=== PATIENT | male | born 1960 ===

== ENCOUNTER 2023-08-05 23:04 | Inpatient (IN) | payer OTHER, MEDICARE, SELFPAY ==
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
[2023-08-06 00:31] LABS: Glucose, Whole Blood 105 mg/dL (60-115)
[2023-08-06 03:08] VITALS: BP 104/65; PULSE 69; RESP 18; TEMP 36.7; O2SAT 95
[2023-08-06 03:37] VITALS: BMI 24.9
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
[2023-08-06] MEDS: hydrOXYzine HCL 25 MG TABLET PO (05:23)
[2023-08-06] MEDS: Nicotine Polacrilex 2 MG GUM BUCCAL ×2 (05:50→12:25)
[2023-08-06 08:10] VITALS: BP 115/74; PULSE 64; RESP 18; TEMP 36; O2SAT 98
[2023-08-06 09:23] LABS: Alanine Aminotransferase 24 U/L (0-40); Albumin Level 4.1 g/dL (3.5-5.0); Alkaline Phosphatase 97 U/L (39-117); Anion Gap 8 (12-20); Aspartate Amino Transferase 45 U/L (5-37); Bilirubin Total 0.5 mg/dL (0.0-1.0); Blood Urea Nitrogen 20 mg/dL (9-16); Calcium 9.3 mg/dL (8.4-10.2); Carbon Dioxide 29 mmol/L (22-29); Chloride 107 mmol/L (96-108); Cholesterol 113 mg/dL (<200); Creatinine Clr Calc Pharmacy 110.9; Estimated Glomerular Filt Rate > 60; Glucose Fasting 102 mg/dL (60-99); HDL Cholesterol 47 mg/dL (>40); LDL Cholesterol Calculated 60 mg/dL (<100); Potassium 4.3 mmol/L (3.3-5.1); Sodium 140 mmol/L (135-145); Total Protein 6.6 g/dL (6.5-8.0); Triglycerides 33 mg/dL (<150)
[2023-08-06] MEDS: Rivaroxaban 20 MG TABLET PO (14:34)
[2023-08-06] MEDS: levETIRAcetam 500 MG TABLET 2500 MG PO (14:34)
[2023-08-06 14:39] LABS: Neut%MD 64.4 %; Neutrophils Absolute Auto 5.1 x10*3/uL (2.0-8.3)
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
[2023-08-06 17:05] VITALS: BP 118/63; PULSE 68; RESP 16; TEMP 36.1; O2SAT 97
[2023-08-06] MEDS: Acetaminophen 325 MG TABLET 650 MG PO (18:58)
[2023-08-06] MEDS: Lacosamide 100 MG TABLET 200 MG PO (21:01)
[2023-08-06] MEDS: Docusate Sodium 100 MG CAPSULE PO (21:01)
[2023-08-06] MEDS: cloZAPine 25 MG TABLET 50 MG PO (21:01)
[2023-08-07] MEDS: Levothyroxine Sodium 112 MCG, Levothyroxine Sodium 25 MCG 137 MCG PO (06:05)
[2023-08-07 08:46] VITALS: BP 122/76; PULSE 83; RESP 16; TEMP 36.3; O2SAT 99
[2023-08-07] MEDS: Lacosamide 100 MG TABLET 200 MG PO ×2 (09:21→21:15)
[2023-08-07] MEDS: cloZAPine 100 MG TABLET 200 MG PO (09:21)
[2023-08-07] MEDS: levETIRAcetam 500 MG TABLET 2500 MG PO ×2 (09:21→21:16)
[2023-08-07] MEDS: metFORMIN HCl ER 500 MG TAB.ER.24H PO (09:21)
[2023-08-07] MEDS: Docusate Sodium 100 MG CAPSULE PO ×2 (09:21→21:16)
[2023-08-07] MEDS: Atorvastatin Calcium 10 MG TABLET PO (09:21)
[2023-08-07] MEDS: Metoprolol Succinate ER 100 MG TAB.ER.24H PO (09:22)
[2023-08-07] MEDS: Finasteride 5 MG TABLET PO (09:22)
--- NOTE | 2023-08-07 10:43 | P.PNPSI_ITS ---
Subjective Subjective Date of Service: 08/07/23 Reason For Visit: Schizoaffective disorder,bipolar type Interim History: 63 yo male, history of alcohol use disorder, anxiety, atrial flutter, chronic osteomyelitis, HTN, schizoaffective disorder, seizure disorder. Pt has been visible in milieu. He is mildly irritable upon approach; he reports he will compky with treatmetn; he is somewhat dismissive of care. slow to respond and may be thought blocking; denies voices denies VH. denies SI ro HI. Medication Compliance: Yes Side effects from medications: No Attending Groups: No Review of Systems Acute medical concerns: No Medical Review of Systems: unchanged Review of Systems Review of Systems Yes all other systems are reviewed and are negative Mental Status Exam Mental Status Exam Patient Appearance: Fatigued and Appropriate Patient Orientation: Person, Place, Time and Situation Level of Consciousness: Alert Patient Behavior: Cooperative, Fatigued and Good Eye Contact Mood Description: Sad Affect Description: Flat Patient Cognition Impaired: No Ability to Follow Directions: Good Speech Pattern: Clear, Appropriate, Spontaneous Speech and Soft-Spoken Memory Description: Episodic Impaired Thought Process: Distracted Thought Content: positive for Poverty of Content and positive for Evasive Judgement: Poor Diagnostics Vital Signs (24Hr): Vital Signs - 24 hr 08/06/23 17:05 Temperature 97.0 F Pulse Rate 68 Respiratory Rate 16 Blood Pressure 118/63 Pulse Oximetry 97 Oxygen Delivery Method Room Air BMI result Body Mass Index 24.9 Labs 08/06/23 08:19 Labs: Laboratory Results - last 48 hr 08/06/23 08/06/23 08/06/23 00:25 08:19 14:35 Absolute Neuts (auto) 5.1 Sodium 140 Potassium 4.3 Chloride 107 Carbon Dioxide 29 Anion Gap 8 L BUN 20 H Creatinine 0.78 Estim Creat Clear Calc 110.9 Estimated GFR > 60 POC Glucose 105 Fasting Glucose 102 H Calcium 9.3 Total Bilirubin 0.5 AST 45 H ALT 24 Alkaline Phosphatase 97 Total Protein 6.6 Albumin 4.1 Triglycerides 33 Cholesterol 113 LDL Cholesterol, Calc 60 HDL Cholesterol 47 Medications Medications Current Medications Acetaminophen (Acetaminophen 325 Mg Tablet) 650 mg PO Q6H PRN PRN Reason: Headache/Pain Mild Scale (1-3) Last Admin: 08/06/23 18:58 Dose: 650 mg Al Hydroxide/Mg Hydroxide (Magnesium Hydrox/Alum Hydrox 30 Ml Oral.Susp) 30 ml PO Q6H PRN PRN Reason: Heartburn/Nausea Atorvastatin Calcium (Atorvastatin Calcium 10 Mg Tablet) 10 mg PO DAILY [facility] Last Admin: 08/07/23 09:21 Dose: 10 mg Benztropine Mesylate (Benztropine Mesylate 0.5 Mg Tablet) 0.5 mg PO BID PRN PRN Reason: Extrapyramidal Effects Clozapine (Clozapine 25 Mg Tablet) 50 mg PO BEDTIME [facility] Last Admin: 08/06/23 21:01 Dose: 50 mg Clozapine (Clozapine 100 Mg Tablet) 200 mg PO DAILY [facility] Last Admin: 08/07/23 09:21 Dose: 200 mg Docusate Sodium (Docusate Sodium 100 Mg Capsule) 100 mg PO BID [facility] Last Admin: 08/07/23 09:21 Dose: 100 mg Finasteride (Finasteride 5 Mg Tablet) 5 mg PO DAILY [facility] Last Admin: 08/07/23 09:22 Dose: 5 mg Hydroxyzine HCl (Hydroxyzine Hcl 25 Mg Tablet) 25 mg PO Q6H PRN PRN Reason: Anxiety Last Admin: 08/06/23 05:23 Dose: 25 mg Lacosamide (Lacosamide 100 Mg Tablet) 200 mg PO BID [facility] Last Admin: 08/07/23 09:21 Dose: 200 mg Levetiracetam (Levetiracetam 500 Mg Tablet) 2,500 mg PO BID [facility] Last Admin: 08/07/23 09:21 Dose: 2,500 mg Levothyroxine Sodium 112 mcg/ (Levothyroxine Sodium 25 mcg) 137 mcg PO DAILY@0600 [facility] Last Admin: 08/07/23 06:05 Dose: 137 mcg Loratadine (Loratadine 10 Mg Tablet) 10 mg PO DAILY [facility] Last Admin: 08/07/23 09:22 Dose: Not Given Magnesium Hydroxide (Milk Of Magnesia 30 Ml Oral.Susp) 30 ml PO DAILY PRN PRN Reason: Constipation Metformin HCl (Metformin Hcl Er 500 Mg Tab.Er.24h) 500 mg PO DAILY [facility] Last Admin: 08/07/23 09:21 Dose: 500 mg Metoprolol Succinate (Metoprolol Succinate Er 100 Mg Tab.Er.24h) 100 mg PO DAILY [facility]; Protocol Last Admin: 08/07/23 09:22 Dose: 100 mg Nicotine Polacrilex (Nicotine Polacrilex 2 Mg Gum) 2 mg BUCCAL Q2H PRN PRN Reason: Nicotine Cravings Last Admin: 08/06/23 12:25 Dose: 2 mg Nicotine Polacrilex (Nicotine Polacrilex 2 Mg Gum) 2 mg BUCCAL Q2H PRN PRN Reason: Nicotine Cravings Non-Formulary Medication (Alfuzosin) 10 mg PO DAILY [facility] Rivaroxaban (Rivaroxaban 20 Mg Tablet) 20 mg PO 1500 [facility] Last Admin: 08/06/23 14:34 Dose: 20 mg Trazodone HCl (Trazodone Hcl 50 Mg Tablet) 50 mg PO BEDTIME MRX1 PRN PRN Reason: Insomnia Allergies Allergies Allergy/AdvReac Type Severity Reaction Status Date / Time house dust Allergy Unknown Unknown Verified 08/06/23 17:24 mold Allergy Unknown Unknown Verified 08/06/23 17:24 Assessment & Plan Assessment & Plan (1) Schizoaffective disorder: Status: Acute Code(s): F25.9 - Schizoaffective disorder, unspecified Plan 63 yo male, hx of schizoaffective disorder, s/p community restraint for SI. Plan: Re-establish regime Monitor for breakthrough sx Collateral contact- was contacted, she was working and will talk with us more on Wednesday. She has the number to reach pt. Thyroid panel-pt unsure if he wants levothyroxine Establish alliance, observe 08/07/23 continue tx plan Patient educated on: diagnosis, medication risk/benefits, therapeutic strategies and medical condition Informed Consent: further education needed Reason for continued inpatient stay Substantial Risk for: harm to self, inability to function and rapid decompensation Time Spent With Patient Time: Total time managing care of this patient today ____ minutes.
[2023-08-07] MEDS: Nicotine Polacrilex 2 MG GUM BUCCAL ×3 (14:42→19:16)
[2023-08-07] MEDS: Rivaroxaban 20 MG TABLET PO (14:42)
[2023-08-07] MEDS: hydrOXYzine HCL 25 MG TABLET PO (15:41)
[2023-08-07 18:45] VITALS: BP 113/66; PULSE 71; RESP 16; TEMP 36.6; O2SAT 100
[2023-08-07] MEDS: Acetaminophen 325 MG TABLET 650 MG PO (19:17)
[2023-08-07 20:29] LABS: Glucose, Whole Blood 85 mg/dL (60-115)
[2023-08-07] MEDS: cloZAPine 25 MG TABLET 50 MG PO (21:16)
[2023-08-08] MEDS: Nicotine Polacrilex 2 MG GUM BUCCAL ×4 (01:50→22:06)
[2023-08-08] MEDS: Levothyroxine Sodium 112 MCG, Levothyroxine Sodium 25 MCG 137 MCG PO (05:58)
[2023-08-08 08:35] VITALS: BP 125/76; PULSE 67; RESP 16; TEMP 36.4; O2SAT 100
[2023-08-08 09:09] LABS: Glucose, Whole Blood 82 mg/dL (60-115)
[2023-08-08] MEDS: Atorvastatin Calcium 10 MG TABLET PO (10:32)
[2023-08-08] MEDS: Benztropine Mesylate 0.5 MG TABLET PO (10:32)
[2023-08-08] MEDS: Lacosamide 100 MG TABLET 200 MG PO ×2 (10:33→22:05)
[2023-08-08] MEDS: cloZAPine 100 MG TABLET 200 MG PO (10:33)
[2023-08-08] MEDS: Docusate Sodium 100 MG CAPSULE PO ×2 (10:34→22:05)
[2023-08-08] MEDS: Loratadine 10 MG TABLET PO (10:34)
[2023-08-08] MEDS: metFORMIN HCl ER 500 MG TAB.ER.24H PO (10:34)
[2023-08-08] MEDS: Metoprolol Succinate ER 100 MG TAB.ER.24H PO (10:35)
[2023-08-08] MEDS: Finasteride 5 MG TABLET PO (10:35)
[2023-08-08] MEDS: levETIRAcetam 500 MG TABLET 2500 MG PO ×2 (10:36→22:02)
--- NOTE | 2023-08-08 14:57 | PC.NURSE ---
approached pt w/ 1500 scheduled medications to which pt stated, go away .
[2023-08-08] MEDS: Rivaroxaban 20 MG TABLET PO (16:21)
[2023-08-08 16:22] VITALS: BP 121/78; PULSE 73; RESP 18; TEMP 36.6; O2SAT 97
--- NOTE | 2023-08-08 20:58 | HO.PSYCHPN ---
Subjective Subjective Date of Service: 08/08/23 Reason For Visit: Schizoaffective disorder,bipolar type Interim History: 63 yo male, history of alcohol use disorder, anxiety, atrial flutter, chronic osteomyelitis, HTN, schizoaffective disorder, seizure disorder. Pt visible in milieu. He is less irritable today. he reports no discomfort. he is somewhat dismissive of care and vague at times. slow to respond and may be thought blocking; denies voices denies VH. denies SI ro HI. Medication Compliance: Yes Side effects from medications: No Attending Groups: No Review of Systems Acute medical concerns: No Medical Review of Systems: unchanged Review of Systems Review of Systems Yes all other systems are reviewed and are negative Mental Status Exam Mental Status Exam Patient Appearance: Fatigued and Appropriate Patient Orientation: Person, Place, Time and Situation Level of Consciousness: Alert Patient Behavior: Cooperative, Fatigued and Good Eye Contact Mood Description: Sad Affect Description: Flat Patient Cognition Impaired: No Ability to Follow Directions: Good Speech Pattern: Clear, Appropriate, Spontaneous Speech and Soft-Spoken Memory Description: Episodic Impaired Thought Process: Evasive Thought Content: positive for Poverty of Content Judgement: Fair Diagnostics Vital Signs (24Hr): Vital Signs - 24 hr 08/08/23 08:35 08/08/23 16:22 Temperature 97.5 F 97.8 F Pulse Rate 67 73 Respiratory Rate 16 18 Blood Pressure 125/76 121/78 Pulse Oximetry 100 97 Oxygen Delivery Method Room Air Room Air BMI result Body Mass Index 24.9 Labs 08/06/23 08:19 Labs: Laboratory Results - last 48 hr 08/07/23 08/08/23 20:25 09:05 POC Glucose 85 82 Medications Medications Current Medications Acetaminophen (Acetaminophen 325 Mg Tablet) 650 mg PO Q6H PRN PRN Reason: Headache/Pain Mild Scale (1-3) Last Admin: 08/07/23 19:17 Dose: 325 mg Al Hydroxide/Mg Hydroxide (Magnesium Hydrox/Alum Hydrox 30 Ml Oral.Susp) 30 ml PO Q6H PRN PRN Reason: Heartburn/Nausea Atorvastatin Calcium (Atorvastatin Calcium 10 Mg Tablet) 10 mg PO DAILY [facility] Last Admin: 08/08/23 10:32 Dose: 10 mg Benztropine Mesylate (Benztropine Mesylate 0.5 Mg Tablet) 0.5 mg PO BID PRN PRN Reason: Extrapyramidal Effects Last Admin: 08/08/23 10:32 Dose: 0.5 mg Clozapine (Clozapine 25 Mg Tablet) 50 mg PO BEDTIME [facility] Last Admin: 08/07/23 21:16 Dose: 50 mg Clozapine (Clozapine 100 Mg Tablet) 200 mg PO DAILY [facility] Last Admin: 08/08/23 10:33 Dose: 200 mg Docusate Sodium (Docusate Sodium 100 Mg Capsule) 100 mg PO BID [facility] Last Admin: 08/08/23 10:34 Dose: 100 mg Finasteride (Finasteride 5 Mg Tablet) 5 mg PO DAILY [facility] Last Admin: 08/08/23 10:35 Dose: 5 mg Hydroxyzine HCl (Hydroxyzine Hcl 25 Mg Tablet) 25 mg PO Q6H PRN PRN Reason: Anxiety Last Admin: 08/07/23 15:41 Dose: 25 mg Lacosamide (Lacosamide 100 Mg Tablet) 200 mg PO BID [facility] Last Admin: 08/08/23 10:33 Dose: 200 mg Levetiracetam (Levetiracetam 500 Mg Tablet) 2,500 mg PO BID [facility] Last Admin: 08/08/23 10:36 Dose: 2,500 mg Levothyroxine Sodium 112 mcg/ (Levothyroxine Sodium 25 mcg) 137 mcg PO DAILY@0600 [facility] Last Admin: 08/08/23 05:58 Dose: 137 mcg Loratadine (Loratadine 10 Mg Tablet) 10 mg PO DAILY [facility] Last Admin: 08/08/23 10:34 Dose: 10 mg Magnesium Hydroxide (Milk Of Magnesia 30 Ml Oral.Susp) 30 ml PO DAILY PRN PRN Reason: Constipation Metformin HCl (Metformin Hcl Er 500 Mg Tab.Er.24h) 500 mg PO DAILY [facility] Last Admin: 08/08/23 10:34 Dose: 500 mg Metoprolol Succinate (Metoprolol Succinate Er 100 Mg Tab.Er.24h) 100 mg PO DAILY [facility]; Protocol Last Admin: 08/08/23 10:35 Dose: 100 mg Nicotine Polacrilex (Nicotine Polacrilex 2 Mg Gum) 2 mg BUCCAL Q2H PRN PRN Reason: Nicotine Cravings Last Admin: 08/08/23 16:21 Dose: 2 mg Nicotine Polacrilex (Nicotine Polacrilex 2 Mg Gum) 2 mg BUCCAL Q2H PRN PRN Reason: Nicotine Cravings Non-Formulary Medication (Alfuzosin) 10 mg PO DAILY [facility] Rivaroxaban (Rivaroxaban 20 Mg Tablet) 20 mg PO 1500 [facility] Last Admin: 08/08/23 16:21 Dose: 20 mg Trazodone HCl (Trazodone Hcl 50 Mg Tablet) 50 mg PO BEDTIME MRX1 PRN PRN Reason: Insomnia Allergies Allergies Allergy/AdvReac Type Severity Reaction Status Date / Time house dust Allergy Unknown Unknown Verified 08/06/23 17:24 mold Allergy Unknown Unknown Verified 08/06/23 17:24 Assessment & Plan Assessment & Plan (1) Schizoaffective disorder: Status: Acute Code(s): F25.9 - Schizoaffective disorder, unspecified Plan 63 yo male, hx of schizoaffective disorder, s/p community restraint for SI. Plan: Re-establish regime Monitor for breakthrough sx Collateral contact- was contacted, she was working and will talk with us more on Wednesday. She has the number to reach pt. Thyroid panel-pt unsure if he wants levothyroxine Establish alliance, observe 08/07/23 continue tx plan 08/08/23 continue current tx plan Reason for continued inpatient stay Substantial Risk for: harm to self, inability to function and rapid decompensation Time Spent With Patient Time: Total time managing care of this patient today ____ minutes.
[2023-08-08 21:40] LABS: Glucose, Whole Blood 108 mg/dL (60-115)
[2023-08-08] MEDS: cloZAPine 25 MG TABLET 50 MG PO (22:03)
[2023-08-08] MEDS: hydrOXYzine HCL 25 MG TABLET PO (22:05)
[2023-08-09 08:15] VITALS: BP 107/63; PULSE 71; RESP 16; TEMP 36.3; O2SAT 97
[2023-08-09 08:31] LABS: Glucose, Whole Blood 128 mg/dL (60-115)
[2023-08-09] MEDS: Docusate Sodium 100 MG CAPSULE PO ×2 (08:39→20:45)
[2023-08-09] MEDS: cloZAPine 100 MG TABLET 200 MG PO (08:40)
[2023-08-09] MEDS: levETIRAcetam 500 MG TABLET 2500 MG PO ×2 (08:40→20:45)
[2023-08-09] MEDS: Levothyroxine Sodium 112 MCG, Levothyroxine Sodium 25 MCG 137 MCG PO (08:40)
[2023-08-09] MEDS: Loratadine 10 MG TABLET PO (08:41)
[2023-08-09] MEDS: Metoprolol Succinate ER 100 MG TAB.ER.24H PO (08:41)
[2023-08-09] MEDS: metFORMIN HCl ER 500 MG TAB.ER.24H PO (08:41)
[2023-08-09] MEDS: Atorvastatin Calcium 10 MG TABLET PO (08:41)
[2023-08-09] MEDS: Lacosamide 100 MG TABLET 200 MG PO ×2 (08:41→20:45)
[2023-08-09] MEDS: Finasteride 5 MG TABLET PO (08:42)
[2023-08-09] MEDS: Nicotine Polacrilex 2 MG GUM BUCCAL ×5 (08:45→20:46)
[2023-08-09] MEDS: hydrOXYzine HCL 25 MG TABLET PO (11:48)
--- NOTE | 2023-08-09 14:24 | HO.PSYCHPN ---
Subjective Subjective Date of Service: 08/09/23 Reason For Visit: Schizoaffective disorder,bipolar type Subjective Notes: Conditional Voluntary Healthcare Proxy: No Guardianship: No Medical Problems Affecting Mental Status: No Interim History: Isolative, with expressed SI to team, yet able to contract for his safety on the unit. Took hydroxyzine prn and declined to meet as he was feeling tired. Denies current questions, issues of concern. Medication Compliance: Yes Side effects from medications: No Attending Groups: No Review of Systems Acute medical concerns: No Medical Review of Systems: unchanged Mental Status Exam Mental Status Exam Patient Appearance: Fatigued and Appropriate Patient Orientation: Person, Place, Time and Situation Level of Consciousness: Alert Patient Behavior: Cooperative, Fatigued and Good Eye Contact Mood Description: Sad Affect Description: Flat Patient Cognition Impaired: No Ability to Follow Directions: Good Speech Pattern: Clear, Appropriate, Spontaneous Speech and Soft-Spoken Memory Description: Episodic Impaired Thought Process: Evasive Thought Content: positive for Poverty of Content Judgement: Fair Diagnostics Vital Signs (24Hr): Vital Signs - 24 hr 08/08/23 16:22 08/09/23 08:15 Temperature 97.8 F 97.4 F Pulse Rate 73 71 Respiratory Rate 18 16 Blood Pressure 121/78 107/63 Pulse Oximetry 97 97 Oxygen Delivery Method Room Air Room Air BMI result Body Mass Index 24.9 Labs 08/06/23 08:19 Labs: Laboratory Results - last 48 hr 08/07/23 08/08/23 08/08/23 20:25 09:05 21:36 POC Glucose 85 82 108 08/09/23 08:28 POC Glucose 128 H Medications Medications Current Medications Acetaminophen (Acetaminophen 325 Mg Tablet) 650 mg PO Q6H PRN PRN Reason: Headache/Pain Mild Scale (1-3) Last Admin: 08/07/23 19:17 Dose: 325 mg Al Hydroxide/Mg Hydroxide (Magnesium Hydrox/Alum Hydrox 30 Ml Oral.Susp) 30 ml PO Q6H PRN PRN Reason: Heartburn/Nausea Atorvastatin Calcium (Atorvastatin Calcium 10 Mg Tablet) 10 mg PO DAILY [facility] Last Admin: 08/09/23 08:41 Dose: 10 mg Benztropine Mesylate (Benztropine Mesylate 0.5 Mg Tablet) 0.5 mg PO BID PRN PRN Reason: Extrapyramidal Effects Last Admin: 08/08/23 10:32 Dose: 0.5 mg Clozapine (Clozapine 25 Mg Tablet) 50 mg PO BEDTIME [facility] Last Admin: 08/08/23 22:03 Dose: 50 mg Clozapine (Clozapine 100 Mg Tablet) 200 mg PO DAILY [facility] Last Admin: 08/09/23 08:40 Dose: 200 mg Docusate Sodium (Docusate Sodium 100 Mg Capsule) 100 mg PO BID [facility] Last Admin: 08/09/23 08:39 Dose: 100 mg Finasteride (Finasteride 5 Mg Tablet) 5 mg PO DAILY [facility] Last Admin: 08/09/23 08:42 Dose: 5 mg Hydroxyzine HCl (Hydroxyzine Hcl 25 Mg Tablet) 25 mg PO Q6H PRN PRN Reason: Anxiety Last Admin: 08/09/23 11:48 Dose: 25 mg Lacosamide (Lacosamide 100 Mg Tablet) 200 mg PO BID [facility] Last Admin: 08/09/23 08:41 Dose: 200 mg Levetiracetam (Levetiracetam 500 Mg Tablet) 2,500 mg PO BID [facility] Last Admin: 08/09/23 08:40 Dose: 2,500 mg Levothyroxine Sodium 112 mcg/ (Levothyroxine Sodium 25 mcg) 137 mcg PO DAILY@0600 [facility] Last Admin: 08/09/23 08:40 Dose: 137 mcg Loratadine (Loratadine 10 Mg Tablet) 10 mg PO DAILY [facility] Last Admin: 08/09/23 08:41 Dose: 10 mg Magnesium Hydroxide (Milk Of Magnesia 30 Ml Oral.Susp) 30 ml PO DAILY PRN PRN Reason: Constipation Metformin HCl (Metformin Hcl Er 500 Mg Tab.Er.24h) 500 mg PO DAILY [facility] Last Admin: 08/09/23 08:41 Dose: 500 mg Metoprolol Succinate (Metoprolol Succinate Er 100 Mg Tab.Er.24h) 100 mg PO DAILY [facility]; Protocol Last Admin: 08/09/23 08:41 Dose: 100 mg Nicotine Polacrilex (Nicotine Polacrilex 2 Mg Gum) 2 mg BUCCAL Q2H PRN PRN Reason: Nicotine Cravings Last Admin: 08/09/23 11:50 Dose: 2 mg Nicotine Polacrilex (Nicotine Polacrilex 2 Mg Gum) 2 mg BUCCAL Q2H PRN PRN Reason: Nicotine Cravings Non-Formulary Medication (Alfuzosin) 10 mg PO DAILY [facility] Rivaroxaban (Rivaroxaban 20 Mg Tablet) 20 mg PO 1500 [facility] Last Admin: 08/08/23 16:21 Dose: 20 mg Trazodone HCl (Trazodone Hcl 50 Mg Tablet) 50 mg PO BEDTIME MRX1 PRN PRN Reason: Insomnia Allergies Allergies Allergy/AdvReac Type Severity Reaction Status Date / Time house dust Allergy Unknown Unknown Verified 08/06/23 17:24 mold Allergy Unknown Unknown Verified 08/06/23 17:24 Assessment & Plan Assessment & Plan (1) Schizoaffective disorder: Status: Acute Code(s): F25.9 - Schizoaffective disorder, unspecified Plan 63 yo male, hx of schizoaffective disorder, s/p community restraint for SI. Plan: Re-establish regime Monitor for breakthrough sx Collateral contact- was contacted, she was working and will talk with us more on Wednesday. She has the number to reach pt. Thyroid panel-pt unsure if he wants levothyroxine Establish alliance, observe 08/07/23 continue tx plan 08/08/23 continue current tx plan 08/09/23 Expressing SI today with ability to contract for safety on the unit. Monitor, continue attempts with alliance building No medication changes today. Informed Consent: understands Reason for continued inpatient stay Substantial Risk for: rapid decompensation Time Spent With Patient Time: Total time managing care of this patient today ____ minutes.
[2023-08-09] MEDS: Rivaroxaban 20 MG TABLET PO (15:24)
[2023-08-09] MEDS: Acetaminophen 325 MG TABLET 650 MG PO (15:28)
--- NOTE | 2023-08-09 16:38 | P.CONHOSP_ITS ---
History of Present Illness Data of Consult Service Date: 08/09/23 Primary Care Provider: Unknown Physician HPI Reason for consult: Medical evaluation Mr. Noyola is a 63 yo male with past medical history significant for chronic A. fib and LLE DVT (on Xarelto), HTN, HLD, chronic venous stasis, type 2 diabetes, seizure disorder as well as psychiatric history of schizophrenia vs schizoaffective presently admitted to inpatient Psych for management of Schizophrenia. He seems to be doing better. He is very pleasant and is able to tell me his background medical issues. He presently has no acute medical isues such as chest pain, shortness of breath, dizziness , no abdominal pain. Review of Systems 2 Review of Systems: Gen: no fever Resp: no sob, no cough CV: no chest, no WOO, no leg edema GI: No n/v, no abd pain Neuro: No confusion Yes all other systems are reviewed and are negative [facility] Medical History (Updated 08/09/23 @ 17:16 by Jose Moody MD) HLD (hyperlipidemia) Schizoaffective disorder MRSA (methicillin resistant Staphylococcus aureus) infection Dysphasia Chronic headaches Seizures Anemia Diabetes mellitus, type 2 Hallucinations Suicidal behavior Schizophrenia Hypertension Osteomyelitis DVT (deep venous thrombosis) GERD (gastroesophageal reflux disease) Ulcerative colitis Hiatal hernia Cardiac arrhythmia Social History Household Members: None Housing: Apartment Do you presently have visiting nurse or other home services: Yes (someone comes in to help him with meds. Service from [employer]) Unable to assess alcohol history related to: Unknown Patient Tobacco Use Status: Current everyday Tobacco user Tobacco use type: Cigarette Years Smoked: 52 Smoked in Last 30 Days: Yes e-Cigarette/Vaping Use: Never Used Patient Interested in Nicotine Replacement: Yes Patient Given Instructions on How to Stop Smoking: Yes Date Education Initiated: 08/05/23 Second Hand Smoke Exposure: No Use of substances other than those prescribed or required for medical reasons: Yes Substance Use Type: Crack/Cocaine and Marijuana Last Used Substance Other:: this was years ago Currently Displaying Signs/Symptoms of Drug Intoxication Withdrawal: No Any prior treatment program specific to substance use: Yes ([facility]) Have you been hit, kicked, punched, or otherwise hurt by someone within the past year? If so, by whom?: No Do you feel safe in your current relationship?: Yes Is there a partner from a previous relationship who is making you feel unsafe now?: No Are you made to feel afraid or neglected: No Spiritual Healthcare Practices: none Advance Directives: No Advance Directives Information Provided: No Do you have thoughts of harming others: None Do you have a plan to hurt others: No Plan Recently lost weight without trying: No Eating poorly because of decreased appetite: No Nutrition Risks: No Nutritional Risk Poor oral hygiene: No Meds Allergies Allergy/AdvReac Type Severity Reaction Status Date / Time house dust Allergy Unknown Unknown Verified 08/06/23 17:24 mold Allergy Unknown Unknown Verified 08/06/23 17:24 Active Medications: Current Medications Acetaminophen (Acetaminophen 325 Mg Tablet) 650 mg PO Q6H PRN PRN Reason: Headache/Pain Mild Scale (1-3) Last Admin: 08/09/23 15:28 Dose: 650 mg Al Hydroxide/Mg Hydroxide (Magnesium Hydrox/Alum Hydrox 30 Ml Oral.Susp) 30 ml PO Q6H PRN PRN Reason: Heartburn/Nausea Atorvastatin Calcium (Atorvastatin Calcium 10 Mg Tablet) 10 mg PO DAILY [facility] Last Admin: 08/09/23 08:41 Dose: 10 mg Benztropine Mesylate (Benztropine Mesylate 0.5 Mg Tablet) 0.5 mg PO BID PRN PRN Reason: Extrapyramidal Effects Last Admin: 08/08/23 10:32 Dose: 0.5 mg Clozapine (Clozapine 25 Mg Tablet) 50 mg PO BEDTIME [facility] Last Admin: 08/08/23 22:03 Dose: 50 mg Clozapine (Clozapine 100 Mg Tablet) 200 mg PO DAILY [facility] Last Admin: 08/09/23 08:40 Dose: 200 mg Docusate Sodium (Docusate Sodium 100 Mg Capsule) 100 mg PO BID [facility] Last Admin: 08/09/23 08:39 Dose: 100 mg Finasteride (Finasteride 5 Mg Tablet) 5 mg PO DAILY [facility] Last Admin: 08/09/23 08:42 Dose: 5 mg Hydroxyzine HCl (Hydroxyzine Hcl 25 Mg Tablet) 25 mg PO Q6H PRN PRN Reason: Anxiety Last Admin: 08/09/23 11:48 Dose: 25 mg Lacosamide (Lacosamide 100 Mg Tablet) 200 mg PO BID [facility] Last Admin: 08/09/23 08:41 Dose: 200 mg Levetiracetam (Levetiracetam 500 Mg Tablet) 2,500 mg PO BID [facility] Last Admin: 08/09/23 08:40 Dose: 2,500 mg Levothyroxine Sodium 112 mcg/ (Levothyroxine Sodium 25 mcg) 137 mcg PO DAILY@0600 [facility] Last Admin: 08/09/23 08:40 Dose: 137 mcg Loratadine (Loratadine 10 Mg Tablet) 10 mg PO DAILY [facility] Last Admin: 08/09/23 08:41 Dose: 10 mg Magnesium Hydroxide (Milk Of Magnesia 30 Ml Oral.Susp) 30 ml PO DAILY PRN PRN Reason: Constipation Metformin HCl (Metformin Hcl Er 500 Mg Tab.Er.24h) 500 mg PO DAILY [facility] Last Admin: 08/09/23 08:41 Dose: 500 mg Metoprolol Succinate (Metoprolol Succinate Er 100 Mg Tab.Er.24h) 100 mg PO DAILY [facility]; Protocol Last Admin: 08/09/23 08:41 Dose: 100 mg Nicotine Polacrilex (Nicotine Polacrilex 2 Mg Gum) 2 mg BUCCAL Q2H PRN PRN Reason: Nicotine Cravings Last Admin: 08/09/23 14:50 Dose: 2 mg Nicotine Polacrilex (Nicotine Polacrilex 2 Mg Gum) 2 mg BUCCAL Q2H PRN PRN Reason: Nicotine Cravings Non-Formulary Medication (Alfuzosin) 10 mg PO DAILY [facility] Rivaroxaban (Rivaroxaban 20 Mg Tablet) 20 mg PO 1500 [facility] Last Admin: 08/09/23 15:24 Dose: 20 mg Trazodone HCl (Trazodone Hcl 50 Mg Tablet) 50 mg PO BEDTIME MRX1 PRN PRN Reason: Insomnia Home Medications Medication Instructions Recorded Confirmed Last Taken Type alfuzosin 10 mg tablet,extended 10 mg PO DAILY 08/06/23 08/06/23 Unknown History release 24 hr atorvastatin 10 mg tablet 10 mg PO DAILY 08/06/23 08/06/23 Unknown History benztropine 0.5 mg tablet 0.5 mg PO BID 08/06/23 08/06/23 Unknown History cetirizine 10 mg tablet 10 mg PO DAILY 08/06/23 08/06/23 Unknown History clozapine 200 mg tablet 200 mg PO DAILY 08/06/23 08/06/23 Unknown History clozapine 25 mg tablet 50 mg PO BEDTIME 08/06/23 08/06/23 Unknown History docusate sodium 100 mg capsule 100 mg PO BID 08/06/23 08/06/23 Unknown History finasteride 5 mg tablet 5 mg PO DAILY 08/06/23 08/06/23 Unknown History lacosamide 200 mg tablet 200 mg PO BID 08/06/23 08/06/23 Unknown History levetiracetam 1,000 mg tablet 2,500 mg PO BID 08/06/23 08/06/23 Unknown History levothyroxine 137 mcg tablet 137 mcg PO QAM 08/06/23 08/06/23 Unknown History metformin 500 mg tablet,extended 500 mg PO QAM 08/06/23 08/06/23 Unknown History release 24 hr metoprolol succinate 100 mg 100 mg PO DAILY 08/06/23 08/06/23 Unknown History tablet,extended release 24 hr nicotine (polacrilex) 2 mg gum 2 mg PO Q2H PRN Nicotine Cravings 08/06/23 08/06/23 Unknown History nicotine 21 mg/24 hr daily 1 patch topical DAILY 08/06/23 08/06/23 Unknown History transdermal patch rivaroxaban 20 mg tablet (Xarelto) 20 mg PO QPM 08/06/23 08/06/23 Unknown History Physical Exam 2 Vital Signs and Narrative: Vital Signs: Last Vital Signs Temp 97.4 F 08/09/23 08:15 Pulse 71 08/09/23 08:15 Resp 16 08/09/23 08:15 BP 107/63 08/09/23 08:15 Pulse Ox 97 08/09/23 08:15 O2 Del Method Room Air 08/09/23 08:15 BMI result Body Mass Index 24.9 Const: Other: Constitutional: Alert, in no distress, no distress, rather pleaasan Mental Status: Oriented to person, place and time. Ear, Nose and Throat: clear Respiratory: Clear to auscultation. No wheezing, rales or rhonchi. Cardiovascular: S1 S2 regular. No murmurs, rubs or gallops. Gastrointestinal: Abdomen soft, non-tender, non-distended. Normal bowel sounds.? Neurologic: Cranial nerves II-XII grossly intact. No focal neurological deficits. Moves all extremities spontaneously.? Skin: bilateral stasis dermatitis, left leg appear bigger than other old eschar to lower leg Musculoskeletal: No cyanosis or clubbing. Psychiatric: Normal mood and affect? Results Labs 08/06/23 08:19 Labs: Laboratory Results - last 24 hr 08/08/23 08/09/23 21:36 08:28 POC Glucose 108 128 H Assessment and Plan (1) HLD (hyperlipidemia): Status: Acute Plan 63 yo male with past medical history significant for chronic A. fib and LLE DVT (on Xarelto), HTN, HLD, chronic venous stasis, type 2 diabetes, seizure disorder as well as psychiatric history of schizophrenia vs schizoaffective presently admitted to inpatient Psych for management of Schizophrenia. He seems to be doing better. He is very pleasant and is able to tell me his background medical issues. He presently has no acute medical isues such as chest pain, shortness of breath, dizziness , no abdominal pain. Diabetes--continue Metformin, add SSI HTN-controlled on Metoprolol HLD--continue Statin Chronic AFIB--rate is controlled, continue metoprolol, and xarelto for stroke prevention HypOthyroidism-continue Levothyroxine Seizure d/o--stable, continue Keppra Psych issues: management per Psych Please less know with any acute issues
[2023-08-09 18:00] VITALS: BP 100/65; PULSE 72; RESP 16; TEMP 36.6; O2SAT 97
[2023-08-09] MEDS: cloZAPine 25 MG TABLET 50 MG PO (20:45)
[2023-08-09 21:15] LABS: Glucose, Whole Blood 126 mg/dL (60-115)
[2023-08-10] MEDS: Levothyroxine Sodium 112 MCG, Levothyroxine Sodium 25 MCG 137 MCG PO (06:03)
[2023-08-10] MEDS: hydrOXYzine HCL 25 MG TABLET PO ×2 (06:49→18:56)
[2023-08-10 08:00] VITALS: BP 116/58; PULSE 61; RESP 16; TEMP 36.4; O2SAT 100
[2023-08-10] MEDS: Nicotine Polacrilex 2 MG GUM BUCCAL ×3 (08:26→17:25)
[2023-08-10] MEDS: Metoprolol Succinate ER 100 MG TAB.ER.24H PO (08:26)
[2023-08-10] MEDS: Docusate Sodium 100 MG CAPSULE PO ×2 (08:26→20:22)
[2023-08-10] MEDS: Finasteride 5 MG TABLET PO (08:26)
[2023-08-10] MEDS: Atorvastatin Calcium 10 MG TABLET PO (08:26)
[2023-08-10] MEDS: Loratadine 10 MG TABLET PO (08:26)
[2023-08-10] MEDS: cloZAPine 100 MG TABLET 200 MG PO (08:26)
[2023-08-10] MEDS: metFORMIN HCl ER 500 MG TAB.ER.24H PO (08:26)
[2023-08-10] MEDS: levETIRAcetam 500 MG TABLET 2500 MG PO ×2 (08:26→20:22)
[2023-08-10] MEDS: Lacosamide 100 MG TABLET 200 MG PO ×2 (08:26→20:23)
[2023-08-10 08:39] LABS: Glucose, Whole Blood 86 mg/dL (60-115)
[2023-08-10] MEDS: Rivaroxaban 20 MG TABLET PO (14:21)
--- NOTE | 2023-08-10 15:15 | P.PNPSI_ITS ---
Subjective Subjective Date of Service: 08/10/23 Reason For Visit: Schizoaffective disorder,bipolar type Subjective Notes: Conditional Voluntary Healthcare Proxy: No Guardianship: No Medical Problems Affecting Mental Status: No Interim History: I think I was off the meds for ~2-3 days. I am waiting to tell you if I think they are right for me and proper. I am tolerating them with minimal stiffness. I like cogentin, but it does not mix with coffee. Amantadine gave me a seizure, but it helped with my OCD. Want to try it again? (Explained why we would not trial again, given risk). Believes seizure may have been related to Prolixin or Stelazine given at that time. Reports SI, off and on , reports adequate sleep. Requests no med changes at this time. Medication Compliance: Yes Side effects from medications: No Attending Groups: No Review of Systems Acute medical concerns: No Medical Review of Systems: unchanged Review of Systems Review of Systems Yes all other systems are reviewed and are negative Mental Status Exam Mental Status Exam Patient Appearance: Fatigued and Appropriate Patient Orientation: Person, Place, Time and Situation Level of Consciousness: Alert Patient Behavior: Cooperative, Fatigued and Good Eye Contact Mood Description: Sad Affect Description: Flat Patient Cognition Impaired: No Ability to Follow Directions: Good Speech Pattern: Clear, Appropriate, Spontaneous Speech and Soft-Spoken Memory Description: Episodic Impaired Thought Process: Evasive Thought Content: positive for Poverty of Content Judgement: Fair Diagnostics Vital Signs (24Hr): Vital Signs - 24 hr 08/09/23 18:00 08/10/23 08:00 Temperature 97.8 F 97.6 F Pulse Rate 72 61 Respiratory Rate 16 16 Blood Pressure 100/65 116/58 L Pulse Oximetry 97 100 Oxygen Delivery Method Room Air BMI result Body Mass Index 24.9 Labs 08/06/23 08:19 Labs: Laboratory Results - last 48 hr 08/08/23 08/09/23 08/09/23 21:36 08:28 21:12 POC Glucose 108 128 H 126 H 08/10/23 08:34 POC Glucose 86 Medications Medications Current Medications Acetaminophen (Acetaminophen 325 Mg Tablet) 650 mg PO Q6H PRN PRN Reason: Headache/Pain Mild Scale (1-3) Last Admin: 08/09/23 15:28 Dose: 650 mg Al Hydroxide/Mg Hydroxide (Magnesium Hydrox/Alum Hydrox 30 Ml Oral.Susp) 30 ml PO Q6H PRN PRN Reason: Heartburn/Nausea Atorvastatin Calcium (Atorvastatin Calcium 10 Mg Tablet) 10 mg PO DAILY [facility] Last Admin: 08/10/23 08:26 Dose: 10 mg Benztropine Mesylate (Benztropine Mesylate 0.5 Mg Tablet) 0.5 mg PO BID PRN PRN Reason: Extrapyramidal Effects Last Admin: 08/08/23 10:32 Dose: 0.5 mg Clozapine (Clozapine 25 Mg Tablet) 50 mg PO BEDTIME [facility] Last Admin: 08/09/23 20:45 Dose: 50 mg Clozapine (Clozapine 100 Mg Tablet) 200 mg PO DAILY [facility] Last Admin: 08/10/23 08:26 Dose: 200 mg Docusate Sodium (Docusate Sodium 100 Mg Capsule) 100 mg PO BID [facility] Last Admin: 08/10/23 08:26 Dose: 100 mg Finasteride (Finasteride 5 Mg Tablet) 5 mg PO DAILY [facility] Last Admin: 08/10/23 08:26 Dose: 5 mg Hydroxyzine HCl (Hydroxyzine Hcl 25 Mg Tablet) 25 mg PO Q6H PRN PRN Reason: Anxiety Last Admin: 08/10/23 06:49 Dose: 25 mg Lacosamide (Lacosamide 100 Mg Tablet) 200 mg PO BID [facility] Last Admin: 08/10/23 08:26 Dose: 200 mg Levetiracetam (Levetiracetam 500 Mg Tablet) 2,500 mg PO BID [facility] Last Admin: 08/10/23 08:26 Dose: 2,500 mg Levothyroxine Sodium 112 mcg/ (Levothyroxine Sodium 25 mcg) 137 mcg PO DAILY@0600 [facility] Last Admin: 08/10/23 06:03 Dose: 137 mcg Loratadine (Loratadine 10 Mg Tablet) 10 mg PO DAILY [facility] Last Admin: 08/10/23 08:26 Dose: 10 mg Magnesium Hydroxide (Milk Of Magnesia 30 Ml Oral.Susp) 30 ml PO DAILY PRN PRN Reason: Constipation Metformin HCl (Metformin Hcl Er 500 Mg Tab.Er.24h) 500 mg PO DAILY [facility] Last Admin: 08/10/23 08:26 Dose: 500 mg Metoprolol Succinate (Metoprolol Succinate Er 100 Mg Tab.Er.24h) 100 mg PO DAILY [facility]; Protocol Last Admin: 08/10/23 08:26 Dose: 100 mg Nicotine Polacrilex (Nicotine Polacrilex 2 Mg Gum) 2 mg BUCCAL Q2H PRN PRN Reason: Nicotine Cravings Last Admin: 08/10/23 14:21 Dose: 2 mg Nicotine Polacrilex (Nicotine Polacrilex 2 Mg Gum) 2 mg BUCCAL Q2H PRN PRN Reason: Nicotine Cravings Rivaroxaban (Rivaroxaban 20 Mg Tablet) 20 mg PO 1500 [facility] Last Admin: 08/10/23 14:21 Dose: 20 mg Tamsulosin HCl (Tamsulosin Hcl 0.4 Mg Capsule) 0.4 mg PO BEDTIME [facility] Trazodone HCl (Trazodone Hcl 50 Mg Tablet) 50 mg PO BEDTIME MRX1 PRN PRN Reason: Insomnia Allergies Allergies Allergy/AdvReac Type Severity Reaction Status Date / Time house dust Allergy Unknown Unknown Verified 08/06/23 17:24 mold Allergy Unknown Unknown Verified 08/06/23 17:24 Assessment & Plan Assessment & Plan (1) Schizoaffective disorder: Status: Acute Code(s): F25.9 - Schizoaffective disorder, unspecified Plan 63 yo male, hx of schizoaffective disorder, s/p community restraint for SI. Plan: Re-establish regime Monitor for breakthrough sx Collateral contact- was contacted, she was working and will talk with us more on Wednesday. She has the number to reach pt. Thyroid panel-pt unsure if he wants levothyroxine Establish alliance, observe 08/07/23 continue tx plan 08/08/23 continue current tx plan 08/09/23 Expressing SI today with ability to contract for safety on the unit. Monitor, continue attempts with alliance building No medication changes today. 08/10/23 Continue current regime and plan of care Patient educated on: medication risk/benefits and therapeutic strategies Informed Consent: further education needed Reason for continued inpatient stay Substantial Risk for: rapid decompensation Time Spent With Patient Time: Total time managing care of this patient today ____ minutes.
[2023-08-10 18:00] VITALS: BP 104/70; PULSE 70; RESP 16; TEMP 36.3; O2SAT 99
[2023-08-10] MEDS: cloZAPine 25 MG TABLET 50 MG PO (20:22)
[2023-08-10] MEDS: traZODone HCL 50 MG TABLET PO (20:24)
[2023-08-10 21:00] LABS: Glucose, Whole Blood 137 mg/dL (60-115)
[2023-08-11] MEDS: traZODone HCL 50 MG TABLET PO (02:07)
[2023-08-11] MEDS: Levothyroxine Sodium 112 MCG, Levothyroxine Sodium 25 MCG 137 MCG PO (06:21)
[2023-08-11] MEDS: hydrOXYzine HCL 25 MG TABLET PO (06:52)
[2023-08-11] MEDS: Nicotine Polacrilex 2 MG GUM BUCCAL ×2 (06:53→12:26)
[2023-08-11 07:30] VITALS: BP 96/63; PULSE 72; RESP 16; TEMP 36.3; O2SAT 96
[2023-08-11 08:21] LABS: Glucose, Whole Blood 168 mg/dL (60-115)
[2023-08-11] MEDS: levETIRAcetam 500 MG TABLET 2500 MG PO ×2 (08:41→21:23)
[2023-08-11] MEDS: Lacosamide 100 MG TABLET 200 MG PO ×2 (08:41→21:25)
[2023-08-11] MEDS: Docusate Sodium 100 MG CAPSULE PO ×2 (08:41→21:24)
[2023-08-11] MEDS: Metoprolol Succinate ER 100 MG TAB.ER.24H PO (08:41)
[2023-08-11] MEDS: metFORMIN HCl ER 500 MG TAB.ER.24H PO (08:42)
[2023-08-11] MEDS: cloZAPine 100 MG TABLET 200 MG PO (08:42)
[2023-08-11] MEDS: Loratadine 10 MG TABLET PO (08:42)
[2023-08-11] MEDS: Atorvastatin Calcium 10 MG TABLET PO (08:43)
[2023-08-11] MEDS: Finasteride 5 MG TABLET PO (08:43)
[2023-08-11] MEDS: Acetaminophen 325 MG TABLET 650 MG PO (12:27)
--- NOTE | 2023-08-11 14:42 | HO.PSYCHPN ---
Subjective Subjective Date of Service: 08/11/23 Reason For Visit: Schizoaffective disorder,bipolar type Subjective Notes: Conditional Voluntary Healthcare Proxy: No Guardianship: No Medical Problems Affecting Mental Status: No Interim History: Alan reports he has intermittent SI but is feeling safe on the unit. He presents as calmer, less guarded. He reports his regime is tolerated and effective and asks for no changes today, however states he may ask for changes another day and was reassured we are here to be of help with these issues as they arise. Reports sleep is less disrupted and denies pain at this time. Medication Compliance: Yes Side effects from medications: No Attending Groups: No Review of Systems Acute medical concerns: No Medical Review of Systems: unchanged Review of Systems Review of Systems Yes all other systems are reviewed and are negative Mental Status Exam Mental Status Exam Patient Appearance: Appropriate Patient Orientation: Person, Place, Time and Situation Level of Consciousness: Alert Patient Behavior: Cooperative and Good Eye Contact Mood Description: Blunted Affect Description: Blunted Patient Cognition Impaired: No Ability to Follow Directions: Good Speech Pattern: Clear, Appropriate, Spontaneous Speech and Soft-Spoken Memory Description: Episodic Impaired Hallucinations: Auditory Delusions: Paranoid Ideation Thought Process: Evasive Thought Content: positive for Poverty of Content and positive for Suicidal Ideation (yes, at times . Able to contract for his safety on the unit.) Depressive Symptoms: Sleeping More Than Usual and Thoughts of /Suicide (at times) Judgement: Fair Diagnostics Vital Signs (24Hr): Vital Signs - 24 hr 08/10/23 18:00 08/11/23 07:30 Temperature 97.4 F 97.3 F Pulse Rate 70 72 Respiratory Rate 16 16 Blood Pressure 104/70 96/63 Pulse Oximetry 99 96 Oxygen Delivery Method Room Air BMI result Body Mass Index 24.9 Labs 08/06/23 08:19 Labs: Laboratory Results - last 48 hr 08/09/23 08/10/23 08/10/23 21:12 08:34 20:56 POC Glucose 126 H 86 137 H 08/11/23 08:16 POC Glucose 168 H Imaging Radiology Impressions: ITS Impressions Head CT 08/10/23 16:26 IMPRESSION: No acute intracranial pathology. Medications Medications Current Medications Acetaminophen (Acetaminophen 325 Mg Tablet) 650 mg PO Q6H PRN PRN Reason: Headache/Pain Mild Scale (1-3) Last Admin: 08/11/23 12:27 Dose: 650 mg Al Hydroxide/Mg Hydroxide (Magnesium Hydrox/Alum Hydrox 30 Ml Oral.Susp) 30 ml PO Q6H PRN PRN Reason: Heartburn/Nausea Atorvastatin Calcium (Atorvastatin Calcium 10 Mg Tablet) 10 mg PO DAILY [facility] Last Admin: 08/11/23 08:43 Dose: 10 mg Benztropine Mesylate (Benztropine Mesylate 0.5 Mg Tablet) 0.5 mg PO BID PRN PRN Reason: Extrapyramidal Effects Last Admin: 08/08/23 10:32 Dose: 0.5 mg Clozapine (Clozapine 25 Mg Tablet) 50 mg PO BEDTIME [facility] Last Admin: 08/10/23 20:22 Dose: 50 mg Clozapine (Clozapine 100 Mg Tablet) 200 mg PO DAILY [facility] Last Admin: 08/11/23 08:42 Dose: 200 mg Docusate Sodium (Docusate Sodium 100 Mg Capsule) 100 mg PO BID [facility] Last Admin: 08/11/23 08:41 Dose: 100 mg Finasteride (Finasteride 5 Mg Tablet) 5 mg PO DAILY [facility] Last Admin: 08/11/23 08:43 Dose: 5 mg Hydroxyzine HCl (Hydroxyzine Hcl 25 Mg Tablet) 25 mg PO Q6H PRN PRN Reason: Anxiety Last Admin: 08/11/23 06:52 Dose: 25 mg Lacosamide (Lacosamide 100 Mg Tablet) 200 mg PO BID [facility] Last Admin: 08/11/23 08:41 Dose: 200 mg Levetiracetam (Levetiracetam 500 Mg Tablet) 2,500 mg PO BID [facility] Last Admin: 08/11/23 08:41 Dose: 2,500 mg Levothyroxine Sodium 112 mcg/ (Levothyroxine Sodium 25 mcg) 137 mcg PO DAILY@0600 [facility] Last Admin: 08/11/23 06:21 Dose: 137 mcg Loratadine (Loratadine 10 Mg Tablet) 10 mg PO DAILY [facility] Last Admin: 08/11/23 08:42 Dose: 10 mg Magnesium Hydroxide (Milk Of Magnesia 30 Ml Oral.Susp) 30 ml PO DAILY PRN PRN Reason: Constipation Metformin HCl (Metformin Hcl Er 500 Mg Tab.Er.24h) 500 mg PO DAILY [facility] Last Admin: 08/11/23 08:42 Dose: 500 mg Metoprolol Succinate (Metoprolol Succinate Er 100 Mg Tab.Er.24h) 100 mg PO DAILY [facility]; Protocol Last Admin: 08/11/23 08:41 Dose: 100 mg Nicotine Polacrilex (Nicotine Polacrilex 2 Mg Gum) 2 mg BUCCAL Q2H PRN PRN Reason: Nicotine Cravings Last Admin: 08/11/23 12:26 Dose: 2 mg Nicotine Polacrilex (Nicotine Polacrilex 2 Mg Gum) 2 mg BUCCAL Q2H PRN PRN Reason: Nicotine Cravings Rivaroxaban (Rivaroxaban 20 Mg Tablet) 20 mg PO 1500 [facility] Last Admin: 08/10/23 14:21 Dose: 20 mg Tamsulosin HCl (Tamsulosin Hcl 0.4 Mg Capsule) 0.4 mg PO BEDTIME [facility] Last Admin: 08/10/23 20:29 Dose: Not Given Trazodone HCl (Trazodone Hcl 50 Mg Tablet) 50 mg PO BEDTIME MRX1 PRN PRN Reason: Insomnia Last Admin: 08/11/23 02:07 Dose: 50 mg Allergies Allergies Allergy/AdvReac Type Severity Reaction Status Date / Time house dust Allergy Unknown Unknown Verified 08/06/23 17:24 mold Allergy Unknown Unknown Verified 08/06/23 17:24 amantadine AdvReac Severe Seizure Uncoded 08/10/23 17:57 Assessment & Plan Assessment & Plan (1) Schizoaffective disorder: Status: Acute Code(s): F25.9 - Schizoaffective disorder, unspecified Plan 63 yo male, hx of schizoaffective disorder, s/p community restraint for SI. Plan: Re-establish regime Monitor for breakthrough sx Collateral contact- was contacted, she was working and will talk with us more on Wednesday. She has the number to reach pt. Thyroid panel-pt unsure if he wants levothyroxine Establish alliance, observe 08/07/23 continue tx plan 08/08/23 continue current tx plan 08/09/23 Expressing SI today with ability to contract for safety on the unit. Monitor, continue attempts with alliance building No medication changes today. 08/10/23 Continue current regime and plan of care 08/11/23 No changes to regime at this time. Patient educated on: therapeutic strategies Informed Consent: understands Reason for continued inpatient stay Substantial Risk for: rapid decompensation Time Spent With Patient Time: Total time managing care of this patient today ____ minutes.
[2023-08-11] MEDS: Rivaroxaban 20 MG TABLET PO (15:26)
[2023-08-11 18:00] VITALS: BP 105/58; PULSE 71; RESP 16; TEMP 36.4; O2SAT 97
[2023-08-11] MEDS: cloZAPine 25 MG TABLET 50 MG PO (21:25)
[2023-08-11] MEDS: Tamsulosin HCL 0.4 MG CAPSULE PO (21:26)
[2023-08-11 21:43] LABS: Glucose, Whole Blood 112 mg/dL (60-115)
[2023-08-12] MEDS: Levothyroxine Sodium 112 MCG, Levothyroxine Sodium 25 MCG 137 MCG PO (06:24)
[2023-08-12 08:05] VITALS: BP 102/59; PULSE 66; RESP 18; TEMP 36.3; O2SAT 99
[2023-08-12 08:41] LABS: Glucose, Whole Blood 134 mg/dL (60-115)
[2023-08-12] MEDS: Finasteride 5 MG TABLET PO (08:50)
[2023-08-12] MEDS: Loratadine 10 MG TABLET PO (08:51)
[2023-08-12] MEDS: levETIRAcetam 500 MG TABLET 2500 MG PO ×2 (08:51→21:42)
[2023-08-12] MEDS: metFORMIN HCl ER 500 MG TAB.ER.24H PO (08:51)
[2023-08-12] MEDS: Atorvastatin Calcium 10 MG TABLET PO (08:52)
[2023-08-12] MEDS: Metoprolol Succinate ER 100 MG TAB.ER.24H PO (08:52)
[2023-08-12] MEDS: cloZAPine 100 MG TABLET 200 MG PO (08:52)
[2023-08-12] MEDS: Docusate Sodium 100 MG CAPSULE PO ×2 (08:52→21:42)
[2023-08-12] MEDS: Lacosamide 100 MG TABLET 200 MG PO ×2 (08:52→21:42)
[2023-08-12] MEDS: Nicotine Polacrilex 2 MG GUM BUCCAL ×2 (09:45→14:45)
[2023-08-12 14:01] VITALS: BMI 27.0
--- NOTE | 2023-08-12 14:38 | HO.PSYCHPN ---
Subjective Subjective Date of Service: 08/12/23 Reason For Visit: Schizoaffective disorder,bipolar type Subjective Notes: Conditional Voluntary Healthcare Proxy: No Guardianship: No Medical Problems Affecting Mental Status: No Interim History: Medication review with adjustments with pt. Reports a decrease in anxiety, feeling somewhat safe on the unit. Baseline paranoia. Declines group, prefers one to one Overall states he feels improved. Medication Compliance: Yes Side effects from medications: No Attending Groups: No Review of Systems Acute medical concerns: No Medical Review of Systems: unchanged Review of Systems Review of Systems Yes all other systems are reviewed and are negative Mental Status Exam Mental Status Exam Patient Appearance: Appropriate Patient Orientation: Person, Place, Time and Situation Level of Consciousness: Alert Patient Behavior: Cooperative and Good Eye Contact Mood Description: Blunted Affect Description: Blunted Patient Cognition Impaired: No Ability to Follow Directions: Good Speech Pattern: Clear, Appropriate, Spontaneous Speech and Soft-Spoken Memory Description: Episodic Impaired Hallucinations: Auditory Delusions: Paranoid Ideation Thought Process: Evasive Thought Content: positive for Poverty of Content and positive for Suicidal Ideation (yes, at times . Able to contract for his safety on the unit.) Depressive Symptoms: Sleeping More Than Usual and Thoughts of /Suicide (at times) Judgement: Fair Diagnostics Vital Signs (24Hr): Vital Signs - 24 hr 08/11/23 18:00 08/12/23 08:05 Temperature 97.5 F 97.4 F Pulse Rate 71 66 Respiratory Rate 16 18 Blood Pressure 105/58 L 102/59 L Pulse Oximetry 97 99 Oxygen Delivery Method Room Air Room Air BMI result Body Mass Index 27.0 Labs 08/13/23 07:57 Labs: Laboratory Results - last 48 hr 08/10/23 08/11/23 08/11/23 20:56 08:16 21:39 POC Glucose 137 H 168 H 112 08/12/23 08:38 POC Glucose 134 H Imaging Radiology Impressions: ITS Impressions Head CT 08/10/23 16:26 IMPRESSION: No acute intracranial pathology. Medications Medications Current Medications Acetaminophen (Acetaminophen 325 Mg Tablet) 650 mg PO Q6H PRN PRN Reason: Headache/Pain Mild Scale (1-3) Last Admin: 08/11/23 12:27 Dose: 650 mg Al Hydroxide/Mg Hydroxide (Magnesium Hydrox/Alum Hydrox 30 Ml Oral.Susp) 30 ml PO Q6H PRN PRN Reason: Heartburn/Nausea Atorvastatin Calcium (Atorvastatin Calcium 10 Mg Tablet) 10 mg PO DAILY [facility] Last Admin: 08/12/23 08:52 Dose: 10 mg Benztropine Mesylate (Benztropine Mesylate 0.5 Mg Tablet) 0.5 mg PO BID PRN PRN Reason: Extrapyramidal Effects Last Admin: 08/08/23 10:32 Dose: 0.5 mg Clozapine (Clozapine 25 Mg Tablet) 50 mg PO BEDTIME [facility] Last Admin: 08/11/23 21:25 Dose: 50 mg Clozapine (Clozapine 100 Mg Tablet) 200 mg PO DAILY [facility] Last Admin: 08/12/23 08:52 Dose: 200 mg Docusate Sodium (Docusate Sodium 100 Mg Capsule) 100 mg PO BID [facility] Last Admin: 08/12/23 08:52 Dose: 100 mg Finasteride (Finasteride 5 Mg Tablet) 5 mg PO DAILY [facility] Last Admin: 08/12/23 08:50 Dose: 5 mg Hydroxyzine HCl (Hydroxyzine Hcl 25 Mg Tablet) 25 mg PO Q6H PRN PRN Reason: Anxiety Last Admin: 08/11/23 06:52 Dose: 25 mg Lacosamide (Lacosamide 100 Mg Tablet) 200 mg PO BID [facility] Last Admin: 08/12/23 08:52 Dose: 200 mg Levetiracetam (Levetiracetam 500 Mg Tablet) 2,500 mg PO BID [facility] Last Admin: 08/12/23 08:51 Dose: 2,500 mg Levothyroxine Sodium 112 mcg/ (Levothyroxine Sodium 25 mcg) 137 mcg PO DAILY@0600 [facility] Last Admin: 08/12/23 06:24 Dose: 137 mcg Loratadine (Loratadine 10 Mg Tablet) 10 mg PO DAILY [facility] Last Admin: 08/12/23 08:51 Dose: 10 mg Magnesium Hydroxide (Milk Of Magnesia 30 Ml Oral.Susp) 30 ml PO DAILY PRN PRN Reason: Constipation Metformin HCl (Metformin Hcl Er 500 Mg Tab.Er.24h) 500 mg PO DAILY [facility] Last Admin: 08/12/23 08:51 Dose: 500 mg Metoprolol Succinate (Metoprolol Succinate Er 100 Mg Tab.Er.24h) 100 mg PO DAILY [facility]; Protocol Last Admin: 08/12/23 08:52 Dose: 100 mg Nicotine Polacrilex (Nicotine Polacrilex 2 Mg Gum) 2 mg BUCCAL Q2H PRN PRN Reason: Nicotine Cravings Last Admin: 08/12/23 09:45 Dose: 2 mg Nicotine Polacrilex (Nicotine Polacrilex 2 Mg Gum) 2 mg BUCCAL Q2H PRN PRN Reason: Nicotine Cravings Rivaroxaban (Rivaroxaban 20 Mg Tablet) 20 mg PO 1500 [facility] Last Admin: 08/11/23 15:26 Dose: 20 mg Tamsulosin HCl (Tamsulosin Hcl 0.4 Mg Capsule) 0.4 mg PO BEDTIME [facility] Last Admin: 08/11/23 21:26 Dose: 0.4 mg Trazodone HCl (Trazodone Hcl 50 Mg Tablet) 50 mg PO BEDTIME MRX1 PRN PRN Reason: Insomnia Last Admin: 08/11/23 02:07 Dose: 50 mg Allergies Allergies Allergy/AdvReac Type Severity Reaction Status Date / Time house dust Allergy Unknown Unknown Verified 08/06/23 17:24 mold Allergy Unknown Unknown Verified 08/06/23 17:24 amantadine AdvReac Severe Seizure Uncoded 08/10/23 17:57 Assessment & Plan Assessment & Plan (1) Schizoaffective disorder: Status: Acute Code(s): F25.9 - Schizoaffective disorder, unspecified Plan 63 yo male, hx of schizoaffective disorder, s/p community restraint for SI. Plan: Re-establish regime Monitor for breakthrough sx Collateral contact- was contacted, she was working and will talk with us more on Wednesday. She has the number to reach pt. Thyroid panel-pt unsure if he wants levothyroxine Establish alliance, observe 08/07/23 continue tx plan 08/08/23 continue current tx plan 08/09/23 Expressing SI today with ability to contract for safety on the unit. Monitor, continue attempts with alliance building No medication changes today. 08/10/23 Continue current regime and plan of care 08/12/23 On 08/14 change Clozapine to 75 mg a.m. 175 mg pm Miralax daily Flomax change to a.m. dosing per pt request. Patient educated on: medication risk/benefits and therapeutic strategies Informed Consent: understands and further education needed Reason for continued inpatient stay Substantial Risk for: rapid decompensation Time Spent With Patient Time: Total time managing care of this patient today ____ minutes.
[2023-08-12] MEDS: Rivaroxaban 20 MG TABLET PO (14:43)
[2023-08-12 16:55] VITALS: BP 123/66; PULSE 68; RESP 16; TEMP 36.7; O2SAT 98
[2023-08-12] MEDS: hydrOXYzine HCL 25 MG TABLET PO (17:10)
[2023-08-12] MEDS: Nicotine Polacrilex 2 MG GUM 4 MG BUCCAL ×2 (17:12→20:21)
[2023-08-12] MEDS: cloZAPine 25 MG TABLET 50 MG PO (21:42)
[2023-08-12] MEDS: traZODone HCL 25 MG HALFTAB PO (21:44)
[2023-08-12] MEDS: Acetaminophen 325 MG TABLET 650 MG PO (21:58)
[2023-08-12 21:59] LABS: Glucose, Whole Blood 107 mg/dL (60-115)
[2023-08-13] MEDS: Levothyroxine Sodium 112 MCG, Levothyroxine Sodium 25 MCG 137 MCG PO (06:14)
[2023-08-13 08:00] VITALS: BP 102/65; PULSE 62; RESP 16; TEMP 36.2; O2SAT 98
[2023-08-13 08:18] LABS: Glucose, Whole Blood 98 mg/dL (60-115)
[2023-08-13 08:24] LABS: Neut%MD 57.6 %; WBCANC 5.1 X10*3/uL
[2023-08-13 08:30] LABS: Creatinine Clr Calc Pharmacy 127.2; Estimated Glomerular Filt Rate > 60
[2023-08-13] MEDS: Finasteride 5 MG TABLET PO (08:49)
[2023-08-13] MEDS: cloZAPine 100 MG TABLET 200 MG PO (08:50)
[2023-08-13] MEDS: levETIRAcetam 500 MG TABLET 2500 MG PO ×2 (08:50→20:55)
[2023-08-13] MEDS: metFORMIN HCl ER 500 MG TAB.ER.24H PO (08:50)
[2023-08-13] MEDS: Atorvastatin Calcium 10 MG TABLET PO (08:51)
[2023-08-13] MEDS: Docusate Sodium 100 MG CAPSULE PO ×2 (08:51→20:57)
[2023-08-13] MEDS: Metoprolol Succinate ER 50 MG TAB.ER.24H PO (08:51)
[2023-08-13] MEDS: Loratadine 10 MG TABLET PO (08:51)
[2023-08-13] MEDS: Lacosamide 100 MG TABLET 200 MG PO ×2 (08:51→20:56)
[2023-08-13] MEDS: Nicotine Polacrilex 2 MG GUM 4 MG BUCCAL ×2 (09:27→23:46)
[2023-08-13] MEDS: Tamsulosin HCL 0.4 MG CAPSULE PO (11:12)
[2023-08-13] MEDS: Rivaroxaban 20 MG TABLET PO (14:55)
--- NOTE | 2023-08-13 16:11 | P.PNPSI_ITS ---
Subjective Subjective Date of Service: 08/13/23 Reason For Visit: Schizoaffective disorder,bipolar type Subjective Notes: Conditional Voluntary Healthcare Proxy: No Guardianship: No Medical Problems Affecting Mental Status: No Interim History: Reports some improvement in sx. Denies SI, Denies perceptual alterations. Affect is flat. Paranoia present but decreased as he becomes more familiar with peers, team, milieu. Review of medications, asks that flomax be changes to a.m. Beginning to discuss discharge. Medication Compliance: Yes Side effects from medications: No (will need to watch with changes) Attending Groups: No Review of Systems Acute medical concerns: No Medical Review of Systems: unchanged Review of Systems Review of Systems Yes all other systems are reviewed and are negative Mental Status Exam Mental Status Exam Patient Appearance: Appropriate Patient Orientation: Person, Place, Time and Situation Level of Consciousness: Alert Patient Behavior: Cooperative and Good Eye Contact Mood Description: Blunted Affect Description: Blunted Patient Cognition Impaired: No Ability to Follow Directions: Good Speech Pattern: Clear, Appropriate, Spontaneous Speech and Soft-Spoken Memory Description: Episodic Impaired Hallucinations: Auditory Delusions: Paranoid Ideation Thought Process: Evasive Thought Content: positive for Poverty of Content and positive for Suicidal Ideation (yes, at times . Able to contract for his safety on the unit.) Depressive Symptoms: Sleeping More Than Usual and Thoughts of /Suicide (at times) Judgement: Fair Diagnostics Vital Signs (24Hr): Vital Signs - 24 hr 08/12/23 16:55 08/13/23 08:00 Temperature 98.0 F 97.2 F Pulse Rate 68 62 Respiratory Rate 16 16 Blood Pressure 123/66 102/65 Pulse Oximetry 98 98 Oxygen Delivery Method Room Air Room Air BMI result Body Mass Index 27.0 Labs 08/13/23 07:57 Labs: Laboratory Results - last 48 hr 08/11/23 08/12/23 08/12/23 21:39 08:38 21:54 Absolute Neuts (auto) Creatinine Estim Creat Clear Calc Estimated GFR POC Glucose 112 134 H 107 08/13/23 08/13/23 07:57 08:11 Absolute Neuts (auto) 3.0 Creatinine 0.68 Estim Creat Clear Calc 127.2 Estimated GFR > 60 POC Glucose 98 Imaging Radiology Impressions: ITS Impressions Head CT 08/10/23 16:26 IMPRESSION: No acute intracranial pathology. Medications Medications Current Medications Acetaminophen (Acetaminophen 325 Mg Tablet) 650 mg PO Q6H PRN PRN Reason: Headache/Pain Mild Scale (1-3) Last Admin: 08/12/23 21:58 Dose: 650 mg Al Hydroxide/Mg Hydroxide (Magnesium Hydrox/Alum Hydrox 30 Ml Oral.Susp) 30 ml PO Q6H PRN PRN Reason: Heartburn/Nausea Atorvastatin Calcium (Atorvastatin Calcium 10 Mg Tablet) 10 mg PO DAILY [facility] Last Admin: 08/13/23 08:51 Dose: 10 mg Benztropine Mesylate (Benztropine Mesylate 0.5 Mg Tablet) 0.5 mg PO BID PRN PRN Reason: Extrapyramidal Effects Last Admin: 08/08/23 10:32 Dose: 0.5 mg Clozapine (Clozapine 25 Mg Tablet) 50 mg PO BEDTIME [facility] Stop: 08/13/23 22:00 Last Admin: 08/12/23 21:42 Dose: 50 mg Clozapine (Clozapine 100 Mg Tablet) 200 mg PO DAILY [facility] Stop: 08/13/23 23:59 Last Admin: 08/13/23 08:50 Dose: 200 mg Clozapine (Clozapine 25 Mg Tablet) 175 mg PO BEDTIME [facility] Clozapine (Clozapine 25 Mg Tablet) 75 mg PO DAILY [facility] Docusate Sodium (Docusate Sodium 100 Mg Capsule) 100 mg PO BID [facility] Last Admin: 08/13/23 08:51 Dose: 100 mg Finasteride (Finasteride 5 Mg Tablet) 5 mg PO DAILY [facility] Last Admin: 08/13/23 08:49 Dose: 5 mg Hydroxyzine HCl (Hydroxyzine Hcl 25 Mg Tablet) 25 mg PO Q6H PRN PRN Reason: Anxiety Last Admin: 08/12/23 17:10 Dose: 25 mg Lacosamide (Lacosamide 100 Mg Tablet) 200 mg PO BID [facility] Last Admin: 08/13/23 08:51 Dose: 200 mg Levetiracetam (Levetiracetam 500 Mg Tablet) 2,500 mg PO BID [facility] Last Admin: 08/13/23 08:50 Dose: 2,500 mg Levothyroxine Sodium 112 mcg/ (Levothyroxine Sodium 25 mcg) 137 mcg PO DAILY@0600 [facility] Last Admin: 08/13/23 06:14 Dose: 137 mcg Loratadine (Loratadine 10 Mg Tablet) 10 mg PO DAILY [facility] Last Admin: 08/13/23 08:51 Dose: 10 mg Magnesium Hydroxide (Milk Of Magnesia 30 Ml Oral.Susp) 30 ml PO DAILY PRN PRN Reason: Constipation Metformin HCl (Metformin Hcl Er 500 Mg Tab.Er.24h) 500 mg PO DAILY [facility] Last Admin: 08/13/23 08:50 Dose: 500 mg Metoprolol Succinate (Metoprolol Succinate Er 50 Mg Tab.Er.24h) 50 mg PO DAILY [facility]; Protocol Last Admin: 08/13/23 08:51 Dose: 50 mg Nicotine Polacrilex (Nicotine Polacrilex 2 Mg Gum) 4 mg BUCCAL Q2H PRN PRN Reason: Nicotine Cravings Last Admin: 08/13/23 09:27 Dose: 2 mg Polyethylene Glycol (Polyethylene Glycol 3350 17 Gm Powd.Pack) 17 gm PO DAILY PRN PRN Reason: Constipation Rivaroxaban (Rivaroxaban 20 Mg Tablet) 20 mg PO 1500 [facility] Last Admin: 08/13/23 14:55 Dose: 20 mg Tamsulosin HCl (Tamsulosin Hcl 0.4 Mg Capsule) 0.4 mg PO DAILY [facility] Last Admin: 08/13/23 11:12 Dose: 0.4 mg Trazodone HCl (Trazodone Hcl 25 Mg Halftab) 25 mg PO BEDTIME MRX1 PRN PRN Reason: Insomnia Last Admin: 08/12/23 21:44 Dose: 25 mg Allergies Allergies Allergy/AdvReac Type Severity Reaction Status Date / Time house dust Allergy Unknown Unknown Verified 08/06/23 17:24 mold Allergy Unknown Unknown Verified 08/06/23 17:24 amantadine AdvReac Severe Seizure Uncoded 08/10/23 17:57 Assessment & Plan Assessment & Plan (1) Schizoaffective disorder: Status: Acute Code(s): F25.9 - Schizoaffective disorder, unspecified Plan 63 yo male, hx of schizoaffective disorder, s/p community restraint for SI. Plan: Re-establish regime Monitor for breakthrough sx Collateral contact- was contacted, she was working and will talk with us more on Wednesday. She has the number to reach pt. Thyroid panel-pt unsure if he wants levothyroxine Establish alliance, observe 08/07/23 continue tx plan 08/08/23 continue current tx plan 08/09/23 Expressing SI today with ability to contract for safety on the unit. Monitor, continue attempts with alliance building No medication changes today. 08/10/23 Continue current regime and plan of care 08/12/23 On 08/14 change Clozapine to 75 mg a.m. 175 mg pm Miralax daily Flomax change to a.m. dosing per pt request. 08/13/23 Continue current regime and plan Informed Consent: understands Reason for continued inpatient stay Substantial Risk for: rapid decompensation Time Spent With Patient Time: Total time managing care of this patient today ____ minutes.
[2023-08-13 19:44] VITALS: BP 127/65; PULSE 80; RESP 18; TEMP 36.4; O2SAT 93
[2023-08-13] MEDS: traZODone HCL 25 MG HALFTAB PO (20:57)
[2023-08-13] MEDS: cloZAPine 25 MG TABLET 50 MG PO (20:57)
[2023-08-13 21:07] LABS: Glucose, Whole Blood 96 mg/dL (60-115)
[2023-08-14] MEDS: Levothyroxine Sodium 112 MCG, Levothyroxine Sodium 25 MCG 137 MCG PO (06:16)
[2023-08-14 08:00] VITALS: BP 103/64; PULSE 75; RESP 16; TEMP 36.3; O2SAT 96
[2023-08-14 08:34] LABS: Glucose, Whole Blood 137 mg/dL (60-115)
[2023-08-14] MEDS: Loratadine 10 MG TABLET PO (08:49)
[2023-08-14] MEDS: Finasteride 5 MG TABLET PO (08:49)
[2023-08-14] MEDS: Tamsulosin HCL 0.4 MG CAPSULE PO (08:49)
[2023-08-14] MEDS: levETIRAcetam 500 MG TABLET 2500 MG PO ×2 (08:49→21:30)
[2023-08-14] MEDS: metFORMIN HCl ER 500 MG TAB.ER.24H PO (08:49)
[2023-08-14] MEDS: Metoprolol Succinate ER 50 MG TAB.ER.24H PO (08:49)
[2023-08-14] MEDS: Atorvastatin Calcium 10 MG TABLET PO (08:49)
[2023-08-14] MEDS: Docusate Sodium 100 MG CAPSULE PO ×2 (08:49→21:31)
[2023-08-14] MEDS: Lacosamide 100 MG TABLET 200 MG PO ×2 (08:49→21:30)
[2023-08-14] MEDS: cloZAPine 25 MG TABLET 75 MG PO (08:49)
--- NOTE | 2023-08-14 09:29 | P.PNPSI_ITS ---
Subjective Subjective Date of Service: 08/14/23 Reason For Visit: Schizoaffective disorder,bipolar type Interim History: Met with patient; discussed with team; reviewed chart Patient reports that he is good... A lot better... While talking, patient gets up and moves to place further away from poem writer and then sits down, resumes discussion. He said that he is sleeping okay but did have some dreams at night that he was on trial, which he thinks may affect how he feels during the day... Denies AVH, SI or HI. No other complaints. Mental Status Exam Mental Status Exam Patient Appearance: Appropriate Patient Orientation: Person, Place, Time and Situation Level of Consciousness: Alert Patient Behavior: Guarded, Cooperative, Suspicious and Good Eye Contact Mood Description: Blunted Affect Description: Blunted Patient Cognition Impaired: No Ability to Follow Directions: Good Speech Pattern: Clear, Appropriate, Spontaneous Speech and Soft-Spoken Memory Description: Episodic Impaired Hallucinations: Auditory (denies today) Delusions: Paranoid Ideation Thought Process: Evasive Thought Content: positive for Goal Oriented, positive for Poverty of Content and positive for Suicidal Ideation (currently no, but intermittent) Depressive Symptoms: Sleeping More Than Usual and Thoughts of /Suicide (at times) Judgement and Insight: Impaired Diagnostics Vital Signs (24Hr): Vital Signs - 24 hr 08/13/23 19:44 08/14/23 08:00 Temperature 97.6 F 97.3 F Pulse Rate 80 75 Respiratory Rate 18 16 Blood Pressure 127/65 103/64 Pulse Oximetry 93 96 Oxygen Delivery Method Room Air Room Air BMI result Body Mass Index 27.0 Labs 08/13/23 07:57 Labs: Laboratory Results - last 48 hr 08/12/23 08/13/23 08/13/23 21:54 07:57 08:11 Absolute Neuts (auto) 3.0 Creatinine 0.68 Estim Creat Clear Calc 127.2 Estimated GFR > 60 POC Glucose 107 98 08/13/23 08/14/23 20:55 08:27 Absolute Neuts (auto) Creatinine Estim Creat Clear Calc Estimated GFR POC Glucose 96 137 H Imaging Radiology Impressions: ITS Impressions Head CT 08/10/23 16:26 IMPRESSION: No acute intracranial pathology. Medications Medications Current Medications Acetaminophen (Acetaminophen 325 Mg Tablet) 650 mg PO Q6H PRN PRN Reason: Headache/Pain Mild Scale (1-3) Last Admin: 08/12/23 21:58 Dose: 650 mg Al Hydroxide/Mg Hydroxide (Magnesium Hydrox/Alum Hydrox 30 Ml Oral.Susp) 30 ml PO Q6H PRN PRN Reason: Heartburn/Nausea Atorvastatin Calcium (Atorvastatin Calcium 10 Mg Tablet) 10 mg PO DAILY [facility] Last Admin: 08/14/23 08:49 Dose: 10 mg Benztropine Mesylate (Benztropine Mesylate 0.5 Mg Tablet) 0.5 mg PO BID PRN PRN Reason: Extrapyramidal Effects Last Admin: 08/08/23 10:32 Dose: 0.5 mg Clozapine (Clozapine 25 Mg Tablet) 175 mg PO BEDTIME [facility] Clozapine (Clozapine 25 Mg Tablet) 75 mg PO DAILY [facility] Last Admin: 08/14/23 08:49 Dose: 75 mg Docusate Sodium (Docusate Sodium 100 Mg Capsule) 100 mg PO BID [facility] Last Admin: 08/14/23 08:49 Dose: 100 mg Finasteride (Finasteride 5 Mg Tablet) 5 mg PO DAILY [facility] Last Admin: 08/14/23 08:49 Dose: 5 mg Hydroxyzine HCl (Hydroxyzine Hcl 25 Mg Tablet) 25 mg PO Q6H PRN PRN Reason: Anxiety Last Admin: 08/12/23 17:10 Dose: 25 mg Lacosamide (Lacosamide 100 Mg Tablet) 200 mg PO BID [facility] Last Admin: 08/14/23 08:49 Dose: 200 mg Levetiracetam (Levetiracetam 500 Mg Tablet) 2,500 mg PO BID [facility] Last Admin: 08/14/23 08:49 Dose: 2,500 mg Levothyroxine Sodium 112 mcg/ (Levothyroxine Sodium 25 mcg) 137 mcg PO DAILY@0600 [facility] Last Admin: 08/14/23 06:16 Dose: 137 mcg Loratadine (Loratadine 10 Mg Tablet) 10 mg PO DAILY [facility] Last Admin: 08/14/23 08:49 Dose: 10 mg Magnesium Hydroxide (Milk Of Magnesia 30 Ml Oral.Susp) 30 ml PO DAILY PRN PRN Reason: Constipation Metformin HCl (Metformin Hcl Er 500 Mg Tab.Er.24h) 500 mg PO DAILY [facility] Last Admin: 08/14/23 08:49 Dose: 500 mg Metoprolol Succinate (Metoprolol Succinate Er 50 Mg Tab.Er.24h) 50 mg PO DAILY [facility]; Protocol Last Admin: 08/14/23 08:49 Dose: 50 mg Nicotine Polacrilex (Nicotine Polacrilex 2 Mg Gum) 4 mg BUCCAL Q2H PRN PRN Reason: Nicotine Cravings Last Admin: 08/13/23 23:46 Dose: 4 mg Polyethylene Glycol (Polyethylene Glycol 3350 17 Gm Powd.Pack) 17 gm PO DAILY PRN PRN Reason: Constipation Rivaroxaban (Rivaroxaban 20 Mg Tablet) 20 mg PO 1500 [facility] Last Admin: 08/13/23 14:55 Dose: 20 mg Tamsulosin HCl (Tamsulosin Hcl 0.4 Mg Capsule) 0.4 mg PO DAILY [facility] Last Admin: 08/14/23 08:49 Dose: 0.4 mg Trazodone HCl (Trazodone Hcl 25 Mg Halftab) 25 mg PO BEDTIME [facility] PRN PRN Reason: Insomnia Last Admin: 08/13/23 20:57 Dose: 25 mg Allergies Allergies Allergy/AdvReac Type Severity Reaction Status Date / Time house dust Allergy Unknown Unknown Verified 08/06/23 17:24 mold Allergy Unknown Unknown Verified 08/06/23 17:24 amantadine AdvReac Severe Seizure Uncoded 08/10/23 17:57 Assessment & Plan Assessment & Plan (1) Schizoaffective disorder: Status: Acute Code(s): F25.9 - Schizoaffective disorder, unspecified Plan 63 yo male, hx of schizoaffective disorder, s/p community restraint for SI. Plan: Re-establish regime Monitor for breakthrough sx Collateral contact- was contacted, she was working and will talk with us more on Wednesday. She has the number to reach pt. Thyroid panel-pt unsure if he wants levothyroxine Establish alliance, observe 08/07/23 continue tx plan 08/08/23 continue current tx plan 08/09/23 Expressing SI today with ability to contract for safety on the unit. Monitor, continue attempts with alliance building No medication changes today. 08/10/23 Continue current regime and plan of care 08/12/23 On 08/14 change Clozapine to 75 mg a.m. 175 mg pm Miralax daily Flomax change to a.m. dosing per pt request. 08/13/23 Continue current regime and plan 08/14/23 Patient reports that he is good... A lot better... While talking, patient gets up and moves to place further away from poem writer and then sits down, resumes discussion. He said that he is sleeping okay but did have some dreams at night that he was on trial, which he thinks may affect how he feels during the day... Denies AVH, SI or HI. No other complaints. -continue current treatment plan Patient educated on: diagnosis Informed Consent: further education needed Reason for continued inpatient stay Substantial Risk for: rapid decompensation Time Spent With Patient Time: Total time managing care of this patient today ____ minutes.
[2023-08-14] MEDS: Nicotine Polacrilex 2 MG GUM 4 MG BUCCAL ×4 (11:19→19:26)
[2023-08-14] MEDS: Rivaroxaban 20 MG TABLET PO (14:33)
[2023-08-14] MEDS: hydrOXYzine HCL 25 MG TABLET PO (14:35)
[2023-08-14] MEDS: Acetaminophen 325 MG TABLET 650 MG PO (19:28)
[2023-08-14 19:31] VITALS: BP 114/66; PULSE 76; RESP 16; TEMP 36.3; O2SAT 96
[2023-08-14 21:09] LABS: Glucose, Whole Blood 107 mg/dL (60-115)
[2023-08-14] MEDS: cloZAPine 25 MG TABLET 175 MG PO (21:31)
[2023-08-14] MEDS: traZODone HCL 25 MG HALFTAB PO (21:31)
[2023-08-15] MEDS: Levothyroxine Sodium 112 MCG, Levothyroxine Sodium 25 MCG 137 MCG PO (06:20)
[2023-08-15 08:06] LABS: Glucose, Whole Blood 107 mg/dL (60-115)
[2023-08-15 08:07] VITALS: BP 107/60; PULSE 65; RESP 16; TEMP 36.4; O2SAT 95
[2023-08-15] MEDS: levETIRAcetam 500 MG TABLET 2500 MG PO ×2 (08:34→20:35)
[2023-08-15] MEDS: cloZAPine 25 MG TABLET 75 MG PO (08:35)
[2023-08-15] MEDS: metFORMIN HCl ER 500 MG TAB.ER.24H PO (08:35)
[2023-08-15] MEDS: Metoprolol Succinate ER 50 MG TAB.ER.24H PO (08:35)
[2023-08-15] MEDS: Atorvastatin Calcium 10 MG TABLET PO (08:35)
[2023-08-15] MEDS: Tamsulosin HCL 0.4 MG CAPSULE PO (08:35)
[2023-08-15] MEDS: Docusate Sodium 100 MG CAPSULE PO (08:35)
[2023-08-15] MEDS: Lacosamide 100 MG TABLET 200 MG PO ×2 (08:35→20:35)
[2023-08-15] MEDS: Finasteride 5 MG TABLET PO (08:35)
[2023-08-15] MEDS: Loratadine 10 MG TABLET PO (08:35)
--- NOTE | 2023-08-15 11:47 | HO.PSYCHPN ---
Subjective Subjective Date of Service: 08/15/23 Reason For Visit: Schizoaffective disorder,bipolar type Interim History: Met with patient; discussed with team Patient reports that he is doing good. Patient had a visitor today, younger female. 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 He said he had a nice visit. Staff finds patient a little more able to have a conversation. Seems a little less guarded Mental Status Exam Mental Status Exam Patient Appearance: Appropriate Patient Orientation: Person, Place, Time and Situation Level of Consciousness: Alert Patient Behavior: Guarded (but a little less so), Cooperative and Good Eye Contact Mood Description: Blunted Affect Description: Blunted Patient Cognition Impaired: No Ability to Follow Directions: Good Speech Pattern: Clear, Appropriate, Spontaneous Speech and Soft-Spoken Memory Description: Episodic Impaired Hallucinations: Auditory (denies today) Delusions: Paranoid Ideation Thought Process: Evasive Thought Content: positive for Goal Oriented, positive for Poverty of Content and positive for Suicidal Ideation (currently no, but intermittent) Depressive Symptoms: Sleeping More Than Usual and Thoughts of /Suicide (at times) Judgement and Insight: Impaired Diagnostics Vital Signs (24Hr): Vital Signs - 24 hr 08/14/23 19:31 08/15/23 08:07 Temperature 97.3 F 97.6 F Pulse Rate 76 65 Respiratory Rate 16 16 Blood Pressure 114/66 107/60 Pulse Oximetry 96 95 Oxygen Delivery Method Room Air Room Air BMI result Body Mass Index 27.0 Labs 08/13/23 07:57 Labs: Laboratory Results - last 48 hr 08/13/23 08/14/23 08/14/23 20:55 08:27 21:03 POC Glucose 96 137 H 107 08/15/23 08:02 POC Glucose 107 Imaging Radiology Impressions: [facility] Impressions Head CT 08/10/23 16:26 IMPRESSION: No acute intracranial pathology. Medications Medications Current Medications Acetaminophen (Acetaminophen 325 Mg Tablet) 650 mg PO Q6H PRN PRN Reason: Headache/Pain Mild Scale (1-3) Last Admin: 08/14/23 19:28 Dose: 650 mg Al Hydroxide/Mg Hydroxide (Magnesium Hydrox/Alum Hydrox 30 Ml Oral.Susp) 30 ml PO Q6H PRN PRN Reason: Heartburn/Nausea Atorvastatin Calcium (Atorvastatin Calcium 10 Mg Tablet) 10 mg PO DAILY [facility] Last Admin: 08/15/23 08:35 Dose: 10 mg Benztropine Mesylate (Benztropine Mesylate 0.5 Mg Tablet) 0.5 mg PO BID PRN PRN Reason: Extrapyramidal Effects Last Admin: 08/08/23 10:32 Dose: 0.5 mg Clozapine (Clozapine 25 Mg Tablet) 175 mg PO BEDTIME [facility] Last Admin: 08/14/23 21:31 Dose: 175 mg Clozapine (Clozapine 25 Mg Tablet) 75 mg PO DAILY [facility] Last Admin: 08/15/23 08:35 Dose: 75 mg Docusate Sodium (Docusate Sodium 100 Mg Capsule) 100 mg PO BID [facility] Last Admin: 08/15/23 08:35 Dose: 100 mg Finasteride (Finasteride 5 Mg Tablet) 5 mg PO DAILY [facility] Last Admin: 08/15/23 08:35 Dose: 5 mg Hydroxyzine HCl (Hydroxyzine Hcl 25 Mg Tablet) 25 mg PO Q6H PRN PRN Reason: Anxiety Last Admin: 08/14/23 14:35 Dose: 25 mg Lacosamide (Lacosamide 100 Mg Tablet) 200 mg PO BID [facility] Last Admin: 08/15/23 08:35 Dose: 200 mg Levetiracetam (Levetiracetam 500 Mg Tablet) 2,500 mg PO BID [facility] Last Admin: 08/15/23 08:34 Dose: 2,500 mg Levothyroxine Sodium 112 mcg/ (Levothyroxine Sodium 25 mcg) 137 mcg PO DAILY@0600 [facility] Last Admin: 08/15/23 06:20 Dose: 137 mcg Loratadine (Loratadine 10 Mg Tablet) 10 mg PO DAILY [facility] Last Admin: 08/15/23 08:35 Dose: 10 mg Magnesium Hydroxide (Milk Of Magnesia 30 Ml Oral.Susp) 30 ml PO DAILY PRN PRN Reason: Constipation Metformin HCl (Metformin Hcl Er 500 Mg Tab.Er.24h) 500 mg PO DAILY [facility] Last Admin: 08/15/23 08:35 Dose: 500 mg Metoprolol Succinate (Metoprolol Succinate Er 50 Mg Tab.Er.24h) 50 mg PO DAILY [facility]; Protocol Last Admin: 08/15/23 08:35 Dose: 50 mg Nicotine Polacrilex (Nicotine Polacrilex 2 Mg Gum) 4 mg BUCCAL Q2H PRN PRN Reason: Nicotine Cravings Last Admin: 08/14/23 19:26 Dose: 4 mg Polyethylene Glycol (Polyethylene Glycol 3350 17 Gm Powd.Pack) 17 gm PO DAILY PRN PRN Reason: Constipation Rivaroxaban (Rivaroxaban 20 Mg Tablet) 20 mg PO 1500 [facility] Last Admin: 08/14/23 14:33 Dose: 20 mg Tamsulosin HCl (Tamsulosin Hcl 0.4 Mg Capsule) 0.4 mg PO DAILY [facility] Last Admin: 08/15/23 08:35 Dose: 0.4 mg Trazodone HCl (Trazodone Hcl 25 Mg Halftab) 25 mg PO BEDTIME MRX1 PRN PRN Reason: Insomnia Last Admin: 08/14/23 21:31 Dose: 25 mg Allergies Allergies Allergy/AdvReac Type Severity Reaction Status Date / Time house dust Allergy Unknown Unknown Verified 08/06/23 17:24 mold Allergy Unknown Unknown Verified 08/06/23 17:24 amantadine AdvReac Severe Seizure Uncoded 08/10/23 17:57 Assessment & Plan Assessment & Plan (1) Schizoaffective disorder: Status: Acute Code(s): F25.9 - Schizoaffective disorder, unspecified Plan 63 yo male, hx of schizoaffective disorder, s/p community restraint for SI. Plan: Re-establish regime Monitor for breakthrough sx Collateral contact- was contacted, she was working and will talk with us more on Wednesday. She has the number to reach pt. Thyroid panel-pt unsure if he wants levothyroxine Establish alliance, observe 08/07/23 continue tx plan 08/08/23 continue current tx plan 08/09/23 Expressing SI today with ability to contract for safety on the unit. Monitor, continue attempts with alliance building No medication changes today. 08/10/23 Continue current regime and plan of care 08/12/23 On 08/14 change Clozapine to 75 mg a.m. 175 mg pm Miralax daily Flomax change to a.m. dosing per pt request. 08/13/23 Continue current regime and plan 08/14/23 Patient reports that he is good... A lot better... While talking, patient gets up and moves to place further away from documentation writer and then sits down, resumes discussion. He said that he is sleeping okay but did have some dreams at night that he was on trial, which he thinks may affect how he feels during the day... Denies AVH, SI or HI. No other complaints. -continue current treatment plan 08/15 doing good. Enjoyed his visitor today; less guarded. -continue current treatment plan Patient educated on: diagnosis Informed Consent: understands Reason for continued inpatient stay Substantial Risk for: med/psych decompensation Time Spent With Patient Time: Total time managing care of this patient today ____ minutes.
[2023-08-15] MEDS: Nicotine Polacrilex 2 MG GUM 4 MG BUCCAL ×3 (13:10→18:47)
[2023-08-15] MEDS: Rivaroxaban 20 MG TABLET PO (14:39)
[2023-08-15 18:00] VITALS: BP 112/61; PULSE 72; RESP 18; TEMP 36.2; O2SAT 97
[2023-08-15] MEDS: cloZAPine 25 MG TABLET 175 MG PO (20:35)
[2023-08-15 20:53] LABS: Glucose, Whole Blood 110 mg/dL (60-115)
[2023-08-16] MEDS: Levothyroxine Sodium 112 MCG, Levothyroxine Sodium 25 MCG 137 MCG PO (06:16)
[2023-08-16 08:12] VITALS: BP 99/58; PULSE 82; RESP 16; TEMP 36.2; O2SAT 97
[2023-08-16 08:14] LABS: Glucose, Whole Blood 115 mg/dL (60-115)
[2023-08-16] MEDS: levETIRAcetam 500 MG TABLET 2500 MG PO ×2 (09:02→21:08)
[2023-08-16] MEDS: Loratadine 10 MG TABLET PO (09:03)
[2023-08-16] MEDS: Finasteride 5 MG TABLET PO (09:03)
[2023-08-16] MEDS: Metoprolol Succinate ER 50 MG TAB.ER.24H PO (09:03)
[2023-08-16] MEDS: Atorvastatin Calcium 10 MG TABLET PO (09:03)
[2023-08-16] MEDS: Docusate Sodium 100 MG CAPSULE PO ×2 (09:03→21:08)
[2023-08-16] MEDS: Lacosamide 100 MG TABLET 200 MG PO ×2 (09:03→21:09)
[2023-08-16] MEDS: metFORMIN HCl ER 500 MG TAB.ER.24H PO (09:03)
[2023-08-16] MEDS: cloZAPine 25 MG TABLET 75 MG PO (09:03)
--- NOTE | 2023-08-16 09:38 | HO.PSYCHPN ---
Subjective Subjective Date of Service: 08/16/23 Reason For Visit: Schizoaffective disorder,bipolar type Subjective Notes: Conditional Voluntary Healthcare Proxy: No Guardianship: No Medical Problems Affecting Mental Status: No Interim History: Pt reports a good weekend. He would like to call his care team guideTheresa to help with a ride home as he wants to get his mail, go to the pharmacy and the store before going home. He reports he is ready for discharge and is feeling improved. He reports current milieu has been helpful for him. Medication Compliance: Yes Side effects from medications: No Attending Groups: Intermittent Review of Systems Acute medical concerns: No Medical Review of Systems: unchanged Mental Status Exam Mental Status Exam Patient Appearance: Appropriate Patient Orientation: Person, Place, Time and Situation Level of Consciousness: Alert Patient Behavior: Appropriate, Talkative, Cooperative and Good Eye Contact Mood Description: Calm Affect Description: Calm Patient Cognition Impaired: No Ability to Follow Directions: Good Speech Pattern: Spontaneous Speech Memory Description: Intact and Episodic Impaired Hallucinations: None Delusions: Not Present Thought Process: Intact Thought Content: positive for Intact Depressive Symptoms: Thoughts of /Suicide (denies) Judgement: Good Diagnostics Vital Signs (24Hr): Vital Signs - 24 hr 08/15/23 18:00 Temperature 97.1 F Pulse Rate 72 Respiratory Rate 18 Blood Pressure 112/61 Pulse Oximetry 97 Oxygen Delivery Method Room Air BMI result Body Mass Index 27.0 Labs 08/13/23 07:57 Labs: Laboratory Results - last 48 hr 08/14/23 08/15/23 08/15/23 21:03 08:02 20:49 POC Glucose 107 107 110 08/16/23 08:10 POC Glucose 115 Imaging Radiology Impressions: ITS Impressions Head CT 08/10/23 16:26 IMPRESSION: No acute intracranial pathology. Medications Medications Current Medications Acetaminophen (Acetaminophen 325 Mg Tablet) 650 mg PO Q6H PRN PRN Reason: Headache/Pain Mild Scale (1-3) Last Admin: 08/14/23 19:28 Dose: 650 mg Al Hydroxide/Mg Hydroxide (Magnesium Hydrox/Alum Hydrox 30 Ml Oral.Susp) 30 ml PO Q6H PRN PRN Reason: Heartburn/Nausea Atorvastatin Calcium (Atorvastatin Calcium 10 Mg Tablet) 10 mg PO DAILY [facility] Last Admin: 08/16/23 09:03 Dose: 10 mg Benztropine Mesylate (Benztropine Mesylate 0.5 Mg Tablet) 0.5 mg PO BID PRN PRN Reason: Extrapyramidal Effects Last Admin: 08/08/23 10:32 Dose: 0.5 mg Clozapine (Clozapine 25 Mg Tablet) 175 mg PO BEDTIME [facility] Last Admin: 08/15/23 20:35 Dose: 175 mg Clozapine (Clozapine 25 Mg Tablet) 75 mg PO DAILY [facility] Last Admin: 08/16/23 09:03 Dose: 75 mg Docusate Sodium (Docusate Sodium 100 Mg Capsule) 100 mg PO BID [facility] Last Admin: 08/16/23 09:03 Dose: 100 mg Finasteride (Finasteride 5 Mg Tablet) 5 mg PO DAILY [facility] Last Admin: 08/16/23 09:03 Dose: 5 mg Hydroxyzine HCl (Hydroxyzine Hcl 25 Mg Tablet) 25 mg PO Q6H PRN PRN Reason: Anxiety Last Admin: 08/14/23 14:35 Dose: 25 mg Lacosamide (Lacosamide 100 Mg Tablet) 200 mg PO BID [facility] Last Admin: 08/16/23 09:03 Dose: 200 mg Levetiracetam (Levetiracetam 500 Mg Tablet) 2,500 mg PO BID [facility] Last Admin: 08/16/23 09:02 Dose: 2,500 mg Levothyroxine Sodium 112 mcg/ (Levothyroxine Sodium 25 mcg) 137 mcg PO DAILY@0600 [facility] Last Admin: 08/16/23 06:16 Dose: 137 mcg Loratadine (Loratadine 10 Mg Tablet) 10 mg PO DAILY [facility] Last Admin: 08/16/23 09:03 Dose: 10 mg Magnesium Hydroxide (Milk Of Magnesia 30 Ml Oral.Susp) 30 ml PO DAILY PRN PRN Reason: Constipation Metformin HCl (Metformin Hcl Er 500 Mg Tab.Er.24h) 500 mg PO DAILY [facility] Last Admin: 08/16/23 09:03 Dose: 500 mg Metoprolol Succinate (Metoprolol Succinate Er 50 Mg Tab.Er.24h) 50 mg PO DAILY [facility]; Protocol Last Admin: 08/16/23 09:03 Dose: 50 mg Nicotine Polacrilex (Nicotine Polacrilex 2 Mg Gum) 4 mg BUCCAL Q2H PRN PRN Reason: Nicotine Cravings Last Admin: 08/15/23 18:47 Dose: 4 mg Polyethylene Glycol (Polyethylene Glycol 3350 17 Gm Powd.Pack) 17 gm PO DAILY PRN PRN Reason: Constipation Rivaroxaban (Rivaroxaban 20 Mg Tablet) 20 mg PO 1500 [facility] Last Admin: 08/15/23 14:39 Dose: 20 mg Tamsulosin HCl (Tamsulosin Hcl 0.4 Mg Capsule) 0.4 mg PO DAILY [facility] Last Admin: 08/16/23 09:06 Dose: Not Given Trazodone HCl (Trazodone Hcl 25 Mg Halftab) 25 mg PO BEDTIME [facility]X1 PRN PRN Reason: Insomnia Last Admin: 08/14/23 21:31 Dose: 25 mg Allergies Allergies Allergy/AdvReac Type Severity Reaction Status Date / Time house dust Allergy Unknown Unknown Verified 08/06/23 17:24 mold Allergy Unknown Unknown Verified 08/06/23 17:24 amantadine AdvReac Severe Seizure Uncoded 08/10/23 17:57 Assessment & Plan Assessment & Plan (1) Schizoaffective disorder: Status: Acute Code(s): F25.9 - Schizoaffective disorder, unspecified Plan 63 yo male, hx of schizoaffective disorder, s/p community restraint for SI. Plan: Re-establish regime Monitor for breakthrough sx Collateral contact- was contacted, she was working and will talk with us more on Wednesday. She has the number to reach pt. Thyroid panel-pt unsure if he wants levothyroxine Establish alliance, observe 08/07/23 continue tx plan 08/08/23 continue current tx plan 08/09/23 Expressing SI today with ability to contract for safety on the unit. Monitor, continue attempts with alliance building No medication changes today. 08/10/23 Continue current regime and plan of care 08/12/23 On 08/14 change Clozapine to 75 mg a.m. 175 mg pm Miralax daily Flomax change to a.m. dosing per pt request. 08/13/23 Continue current regime and plan 08/14/23 Patient reports that he is good... A lot better... While talking, patient gets up and moves to place further away from scenario writer and then sits down, resumes discussion. He said that he is sleeping okay but did have some dreams at night that he was on trial, which he thinks may affect how he feels during the day... Denies AVH, SI or HI. No other complaints. -continue current treatment plan 08/15 doing good. Enjoyed his visitor today; less guarded. -continue current treatment plan 08/16/23 Preparing for discharge. Appears and presents much improved today. Patient educated on: medication risk/benefits and therapeutic strategies Informed Consent: understands Reason for continued inpatient stay Substantial Risk for: stable for discharge Time Spent With Patient Time: Total time managing care of this patient today ____ minutes.
[2023-08-16] MEDS: Acetaminophen 325 MG TABLET 650 MG PO (09:51)
[2023-08-16] MEDS: Nicotine Polacrilex 2 MG GUM 4 MG BUCCAL ×3 (09:51→18:29)
[2023-08-16] MEDS: Rivaroxaban 20 MG TABLET PO (14:35)
[2023-08-16 18:00] VITALS: BP 119/67; PULSE 73; RESP 17; TEMP 36.3; O2SAT 98
[2023-08-16] MEDS: traZODone HCL 25 MG HALFTAB PO (21:08)
[2023-08-16] MEDS: cloZAPine 25 MG TABLET 175 MG PO (21:08)
[2023-08-16] MEDS: Tamsulosin HCL 0.4 MG CAPSULE PO (21:11)
[2023-08-17] MEDS: Levothyroxine Sodium 112 MCG, Levothyroxine Sodium 25 MCG 137 MCG PO (06:35)
[2023-08-17 08:00] VITALS: BP 115/66; PULSE 75; RESP 16; TEMP 36.4; O2SAT 96
[2023-08-17 08:00] LABS: Glucose, Whole Blood 110 mg/dL (60-115)
[2023-08-17] MEDS: Atorvastatin Calcium 10 MG TABLET PO (08:16)
[2023-08-17] MEDS: levETIRAcetam 500 MG TABLET 2500 MG PO (08:17)
[2023-08-17] MEDS: Lacosamide 100 MG TABLET 200 MG PO (08:17)
[2023-08-17] MEDS: cloZAPine 25 MG TABLET 75 MG PO (08:17)
[2023-08-17] MEDS: metFORMIN HCl ER 500 MG TAB.ER.24H PO (08:18)
[2023-08-17] MEDS: Docusate Sodium 100 MG CAPSULE PO (08:18)
[2023-08-17] MEDS: Metoprolol Succinate ER 50 MG TAB.ER.24H PO (08:19)
[2023-08-17] MEDS: Loratadine 10 MG TABLET PO (08:19)
[2023-08-17] MEDS: Nicotine Polacrilex 2 MG GUM 4 MG BUCCAL (08:25)
[2023-08-17] MEDS: Finasteride 5 MG TABLET PO (08:45)
--- NOTE | 2023-08-17 16:07 | PM.PSYDC ---
DS: Providers Provider Date of Service: 08/17/23 Date of admission: 08/05/23 23:04 Date of discharge: 08/17/23 Primary care physician: Unknown Physician Admitting clinician: Radha Coffey Attending physician on admission: Jun Garcia Consults: 08/05/23 22:46 Consult to Hospitalist Routine Comment: Consulting Provider: Hospitalist Reason For Exam: Direct admission Attending physician on discharge: Jun Garcia Discharging clinician: Radha Coffey DS: Diagnosis Discharge Diagnosis (1) Schizoaffective disorder: Status: Acute DS: Medications Discharge Medications Home Medications: Home Medications Medication Instructions Recorded Confirmed docusate sodium 100 mg capsule 100 mg PO BID 08/06/23 08/06/23 finasteride 5 mg tablet 5 mg PO DAILY 08/06/23 08/06/23 lacosamide 200 mg tablet 200 mg PO BID 08/06/23 08/06/23 levetiracetam 1,000 mg tablet 2,500 mg PO BID 08/06/23 08/06/23 levothyroxine 137 mcg tablet 137 mcg PO QAM 08/06/23 08/06/23 metformin 500 mg tablet,extended 500 mg PO QAM 08/06/23 08/06/23 release 24 hr rivaroxaban 20 mg tablet (Xarelto) 20 mg PO QPM 08/06/23 08/06/23 Previous Rx's Medication Instructions Recorded atorvastatin 10 mg tablet 10 mg PO DAILY #30 tabs 08/16/23 benztropine 0.5 mg tablet 0.5 mg PO BID #60 tabs 08/16/23 cetirizine 10 mg tablet 10 mg PO DAILY #30 tabs 08/16/23 clozapine 100 mg tablet 175 mg (1.75 x 100 mg) PO BEDTIME 08/16/23 #30 tabs clozapine 25 mg tablet 75 mg (3 x 25 mg) PO BID #180 tabs 08/16/23 metoprolol succinate 50 mg 50 mg PO DAILY #30 tabs 08/16/23 tablet,extended release 24 hr nicotine (polacrilex) 2 mg gum 2 mg PO Q2H PRN Nicotine Cravings 08/16/23 #100 ea nicotine 21 mg/24 hr daily 1 patch topical DAILY #30 ea 08/16/23 transdermal patch polyethylene glycol 3350 17 gram 17 g PO DAILY PRN Constipation #1 08/16/23 oral powder packet units tamsulosin 0.4 mg capsule 0.4 mg PO DAILY #30 caps 08/16/23 Mental Status Exam Mental Status Exam Patient Appearance: Appropriate Patient Orientation: Person, Place, Time and Situation Level of Consciousness: Alert Patient Behavior: Appropriate, Talkative, Cooperative and Good Eye Contact Mood Description: Calm Affect Description: Calm Patient Cognition Impaired: No Ability to Follow Directions: Good Speech Pattern: Spontaneous Speech Memory Description: Intact and Episodic Impaired Hallucinations: None Delusions: Not Present Thought Process: Intact Thought Content: positive for Intact Depressive Symptoms: Thoughts of /Suicide (denies) Judgement: Good Data Data Completed and Pending Completed studies during hospitalization [Text1]: 08/10/23 08/11/23 08/11/23 20:56 08:16 21:39 Absolute Neuts (auto) Creatinine Estim Creat Clear Calc Estimated GFR POC Glucose 137 H 168 H 112 08/12/23 08/12/23 08/13/23 08:38 21:54 07:57 Absolute Neuts (auto) 3.0 Creatinine 0.68 Estim Creat Clear Calc 127.2 Estimated GFR > 60 POC Glucose 134 H 107 08/13/23 08/13/23 08/14/23 08:11 20:55 08:27 Absolute Neuts (auto) Creatinine Estim Creat Clear Calc Estimated GFR POC Glucose 98 96 137 H 08/14/23 08/15/23 08/15/23 21:03 08:02 20:49 Absolute Neuts (auto) Creatinine Estim Creat Clear Calc Estimated GFR POC Glucose 107 107 110 08/16/23 08/17/23 08:10 07:55 Absolute Neuts (auto) Creatinine Estim Creat Clear Calc Estimated GFR POC Glucose 115 110 Imaging Diagnostic Imaging Impressions Head CT 08/10/23 16:26 IMPRESSION: No acute intracranial pathology. DS: Summary Hospital Course Hospital Course: Admission to adult psychiatry in transfer from [facility] due to exacerbation of schizoaffective disorder. Pt reports a recent discharge from [facility] on 08/02/23. Prior to admit he was found walking in the street by police. He ran from police, went into a field and began to eat plants, became agitated and aggressive when confronted, required pepper spray and verbalized SI after this incident. Pt was calm and cooperative on the unit, with no behavioral dyscontrol. He did report stopping medications prior to admission, he states due to issues with his pharmacy and refill problems. Medications were evaluated, initiated with Bladimir participation. He was a quiet milieu participant and will return to [facility] for out patient care upon discharge. Time spent discussing smoking cessation with patient: 3 to 10 minutes Status at Discharge Functional status at discharge: independent ambulation Overall status at discharge: patient is progressing back to baseline Time Spent with Patient Time attestation: Total time managing care of this patient today ____ minutes. Time spent: Greater than 30 minutes Discharge Plan Discharge Anticipated Discharge Date/Time: 08/17/23 12:00 Patient Disposition: Home, Self-Care Discharge Diagnosis: Schizoaffective Disorder Referrals: PCP w Dr. [facility] [Other] - 08/24/23 3:45 pm (Follow up appointment on 08/24/2023 at 3:45 p.m.) [facility] Psychiatry Appt w Dr. Lennon [Other] - 09/06/23 11:30 am [facility] Counselor [Other] - 08/18/23 Discharge Medications: New polyethylene glycol 3350 17 gram Powder In Packet 17 g PO DAILY PRN (Reason: Constipation) Qty: 1 0RF metoprolol succinate 50 mg Tablet Extended Release 24 Hr 50 mg PO DAILY Qty: 30 0RF Protocol: Hold for SBP/HR < HOLD for SBP < : 90 HOLD for HR < : 60 tamsulosin 0.4 mg Capsule 0.4 mg PO DAILY Qty: 30 0RF clozapine 100 mg tablet 175 mg PO BEDTIME Qty: 30 0RF clozapine 25 mg tablet 75 mg PO BID Qty: 180 0RF Rx Instructions: 75 mg a.m. 175 mg bedtime Continued levothyroxine 137 mcg tablet 137 mcg PO QAM docusate sodium 100 mg capsule 100 mg PO BID metformin 500 mg tablet extended release 24 hr 500 mg PO QAM finasteride 5 mg tablet 5 mg PO DAILY levetiracetam 1,000 mg tablet 2,500 mg PO BID lacosamide 200 mg tablet 200 mg PO BID Xarelto 20 mg tablet 20 mg PO QPM benztropine 0.5 mg tablet 0.5 mg PO BID Qty: 60 0RF cetirizine 10 mg tablet 10 mg PO DAILY Qty: 30 0RF atorvastatin 10 mg tablet 10 mg PO DAILY Qty: 30 0RF nicotine (polacrilex) 2 mg gum 2 mg PO Q2H PRN (Reason: Nicotine Cravings) Qty: 100 0RF nicotine 21 mg/24 hr patch 24 hour 1 patch topical DAILY Qty: 30 0RF Discontinued metoprolol succinate 100 mg tablet extended release 24 hr 100 mg PO DAILY clozapine 25 mg tablet 50 mg PO BEDTIME alfuzosin 10 mg tablet extended release 24 hr 10 mg PO DAILY clozapine 200 mg tablet 200 mg PO DAILY Discharge Orders: Discharge Order (Routine); Ordered 08/17/23 Ordered By: Radha Coffey Diet: Advance to usual diet Activity on Discharge: As tolerated Stand Alone Forms: Patient Portal Discharge page, Community Support Care Plan Goals: Mood and Behavioral Stabilization Health Concerns: Mood and Behavioral Stabilization Plan of Treatment: Attend scheduled appointments Take medications as directed Assessment: Scheduled discharge Discharge Date/Time: 08/17/23 11:07
== END 2023-08-17 11:07 | disposition home or self-care (01) | DRG 885 ==
PROVIDERS: Psychiatry & Neurology Psychiatry; Admitting Provider Psychiatry & Neurology Psychiatry; Visit Provider Clinical Nurse Specialist Psychiatric/Mental Health, Adult
DX: F25.9 Schizoaffective disorder, unspecified (principal); R45.851 Suicidal ideations; I48.20 Chronic atrial fibrillation, unspecified; F17.210 Nicotine dependence, cigarettes, uncomplicated; E03.9 Hypothyroidism, unspecified; G40.909 Epilepsy, unspecified, not intractable, without status epilepticus; E11.9 Type 2 diabetes mellitus without complications; I87.8 Other specified disorders of veins; Z71.6 Tobacco abuse counseling; Z79.01 Long term (current) use of anticoagulants; Z86.718 Personal history of other venous thrombosis and embolism; Z79.84 Long term (current) use of oral hypoglycemic drugs; Z79.890 Hormone replacement therapy; Z79.899 Other long term (current) drug therapy
CPT/HCPCS: 36415; 70450; 80053; 80061; 82565; 82947; 85048

== ENCOUNTER → 2023-08-05 23:04 | Outpatient (BNV) | payer OTHER, MEDICARE, SELFPAY | PROVIDERS: Admitting Provider Psychiatry & Neurology Psychiatry; Visit Provider Clinical Nurse Specialist Psychiatric/Mental Health, Adult | DX: F25.0 Schizoaffective disorder, bipolar type (principal) | CPT/HCPCS: 90792; 99231; 99232; 99239 ==

== ENCOUNTER → 2023-08-05 23:04 | Outpatient (BNV) | payer OTHER, MEDICARE, SELFPAY | PROVIDERS: Admitting Provider Psychiatry & Neurology Psychiatry; Visit Provider Internal Medicine | DX: E78.5 Hyperlipidemia, unspecified (principal); I48.20 Chronic atrial fibrillation, unspecified; I10 Essential (primary) hypertension; E11.69 Type 2 diabetes mellitus with other specified complication | CPT/HCPCS: 99221 ==

== ENCOUNTER 2023-11-05 14:13 | Outpatient (RCR) | payer OTHER, MEDICARE, SELFPAY | END 2024-03-15 16:13 | disposition home or self-care (01) | LOC: HO.WCC 14:13 | PROVIDERS: PCP Family Medicine; Visit Provider Physician Assistant | DX: E11.622 Type 2 diabetes mellitus with other skin ulcer (principal); L97.822 Non-pressure chronic ulcer of other part of left lower leg with fat layer exposed; I87.032 Postthrombotic syndrome with ulcer and inflammation of left lower extremity; I82.502 Chronic embolism and thrombosis of unspecified deep veins of left lower extremity; F25.0 Schizoaffective disorder, bipolar type; F17.210 Nicotine dependence, cigarettes, uncomplicated; Z79.01 Long term (current) use of anticoagulants; Z79.2 Long term (current) use of antibiotics | CPT/HCPCS: 11042; 99212 ==

== ENCOUNTER 2024-03-07 08:55 | Outpatient (AMB) | payer OTHER, MEDICARE, SELFPAY ==
--- NOTE | 2024-03-07 09:16 | A.OFFVIS_ITS ---
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 Also has concerns about his veins and swelling . Wounds located on leg tibial area. Accompanied by: Self / Same As Patient Allergies house dust Allergy (Unknown, Verified 03/07/24 09:17) Unknown mold Allergy (Unknown, Verified 03/07/24 09:17) Unknown amantadine Adverse Reaction (Severe, Uncoded 08/10/23 17:57) Seizure HPI HPI [employer]/WoundCare Ref for non-healing ulcers: Details: Very pleasant 63-year-old gentleman presents for evaluation regarding lower extremity swelling and recurrent left lower extremity ulcer. He reports that he actually had a DVT nearly 25 years ago. Unclear what the etiology was but a does report it was traumatic in nature. I did try to get more of a history but he was unclear as to the exact issue surrounding it. Patient denies any previous venous surgery or injections. Patient does have a DVT from 25 years ago of left lower extremity Patient denies any history of phlebitis. Trial of compression includes - juxta L[facility] They now present for vascular evaluation regarding their varicose veins. [facility] Medical History HLD (hyperlipidemia) Schizoaffective disorder MRSA (methicillin resistant Staphylococcus aureus) infection Dysphasia Chronic headaches Seizures Anemia Diabetes mellitus, type 2 Hallucinations Suicidal behavior Schizophrenia Hypertension Osteomyelitis DVT (deep venous thrombosis) GERD (gastroesophageal reflux disease) Ulcerative colitis Hiatal hernia Cardiac arrhythmia Social History Household Members: None Housing: Apartment Do you presently have visiting nurse or other home services: Yes (someone comes in to help him with meds. Service from [employer]) Unable to assess alcohol history related to: Unknown Patient Tobacco Use Status: Current everyday Tobacco user Tobacco use type: Cigarette Years Smoked: 52 e-Cigarette/Vaping Use: Never Used Second Hand Smoke Exposure: No Substance Use Type: Crack/Cocaine and Marijuana service: No Sexual orientation: Straight/Heterosexual Review of Systems Const Reports as per HPI ENT Reports no additional complaints Card Denies chest pain, Denies chest pain at rest and Denies chest pain with activity Resp Denies chest congestion and Denies cough GI Reports no additional complaints Musc Details: pain over varicosities, aching of lower extremities, swelling, cramping, heaviness and tiredness, itching Denies abnormal gait Skin/Breast Reports pruritus and Denies wounds Neuro Reports no additional complaints and Denies abnormal gait Psych Denies no additional complaints Physical Exam Const General: cooperative, healthy appearing and comfortable Orientation/consciousness: oriented to person, oriented to place and oriented to time Neck Carotids: no bruits Chest Chest palpation & inspection: normal inspection of the chest and normal palpation of entire chest wall Resp Effort & Inspection: normal respiratory effort and able to speak in complete sentences Cardio Rate: regular rate Heart sounds: S1 normal heart sound present and S2 normal heart sound present Peripheral pulses: Peripheral pulses 2+ throughout GI Inspection: Yes normal to inspection Skin Other: +2 edema, large rope-like varicosities greater than 4 mm CEAP Classification C5 healed ulcer Ep - Etiology Primary As - superficial veins P - reflux General skin exam: dry skin Neuro General: oriented to person, oriented to place and oriented to time Extrem Right lower extremity: full ROM, normal capillary refill and edema Left lower extremity: full ROM, normal capillary refill and edema Psych Mental Status: mental status grossly normal Assessment & Plan Assessment & Plan (1) Varicose veins of left lower extremity with inflammation: Code(s): I83.12 - Varicose veins of left lower extremity with inflammation Category: Medical Plan: In short, the patient has evidence of venous insufficiency with previous ulceration. I have discussed the pathophysiology with the patient. In addition I have provided informational material regarding venous disease to the patient. We have discussed conservative measures including compression, elevation, and exercise. I have also provided a handout regarding appropriate use of compression stockings and where to purchase good compression stockings as well. I have taken the liberty of ordering venous insufficiency testing with the patient. They will follow up with me after testing. The patient had an opportunity to ask questions regarding the treatment plan. All questions were answered. Imaging studies, laboratory studies and physical exam results were discussed and reviewed in detail. No major barriers to understanding were identified. The patient expressed understanding and agreement with the above treatment plan. The patient is aware they should contact our office by phone for worsening of the current condition or the appearance of new symptoms. Thank you for allowing me to participate in the vascular care of this patient. If you have any questions or concerns regarding the treatment for the above condition please do not hesitate to contact me. The office telephone contact is [phone]. This note is constructed using voice recognition software. While every effort has been made to ensure accuracy, data network architect errors may have been included. Thank you for allowing me to participate in the care of your patient. Yours sincerely, Kelechi Rivera MD, FACS, R.P.V.I. Orders: Orders US venous duplex LE BI 1 Week I83.12 - Varicose veins of left lower extremity with inflammation Coding Level of Care Code Est Pt Level 4 (55804) Diagnoses Varicose veins of left lower extremity with inflammation I83.12
== END 2024-03-07 10:16 | disposition home or self-care (01) ==
PROVIDERS: PCP Family Medicine; Visit Provider Surgery Vascular Surgery
DX: I83.12 Varicose veins of left lower extremity with inflammation (principal)
CPT/HCPCS: 99213

== ENCOUNTER → 2024-03-07 08:55 | Outpatient (BNVA) | payer OTHER, MEDICARE, SELFPAY | PROVIDERS: PCP Family Medicine; Visit Provider Surgery Vascular Surgery ==

== ENCOUNTER 2024-03-24 09:43 | Outpatient (REF) | payer OTHER, SELFPAY ==
--- NOTE | ~2024-03-24 | US_ITS ---
EXAMINATION: US LOWER EXTREMITY VENOUS (REFLUX EXAM), BILATERAL CLINICAL INFORMATION: Varicose veins of left lower extremity with inflammation COMPARISON: None. TECHNIQUE: Color flow triplex imaging and compression Doppler was performed to evaluate both the deep and the superficial systems bilaterally. To evaluate the superficial system, the examination was performed in the upright position. Color-flow Doppler ultrasound and compression ultrasound were utilized. In addition, maneuvers were utilized to demonstrate reflux. FINDINGS: 1. DEEP VENOUS ULTRASOUND OF THE RIGHT LOWER EXTREMITY: Common Femoral Vein: Compressible, normal respiratory variation and augmented flow. Femoral Vein: Compressible, normal color flow and augmentation. Popliteal Vein: Compressible, normal augmentation. Deep Reflux: Reflux in the common femoral vein measuring 944 ms. Reflux in the femoral vein measuring 1852 ms. Reflux in the popliteal vein measuring 2532 ms. There is no evidence of a Howe's cyst. 2. SUPERFICIAL ULTRASOUND WITH DOPPLER OF RIGHT LOWER EXTREMITY: GREAT SAPHENOUS VEIN: Saphenofemoral Junction: 1.0 cm; Reflux: 2608 ms Proximal Thigh: 0.8 cm; Reflux: 2308 ms Mid Thigh: 0.4 cm; Reflux: 2448 ms Distal Thigh: 0.5 cm; Reflux: 2296 ms At Knee: 0.4 cm; Reflux: 0 ms Proximal Calf: 0.4 cm; Reflux: 0 ms Mid Calf: 0.1 cm; Reflux: 2156 ms Distal Calf: 0.2 cm; Reflux: 0 ms DUPLICATED LATERAL GREAT SAPHENOUS VEIN: Saphenofemoral Junction: 0.1 cm; Reflux: 0 ms Mid Thigh: 0.2 cm; Reflux: 0 ms SMALL SAPHENOUS VEIN: Saphenopopliteal Junction: 0.2 cm; Reflux: 660 ms Proximal: 0.3 cm; Reflux: 0 ms Distal: 0.2 cm; Reflux: 0 ms PERFORATORS: Location: Mid thigh Size: 0.2; Reflux: 0 ms Location: Distal thigh Size: 0.3; Reflux: 0 ms Location: Proximal calf Size: 0.4; Reflux: 0 ms Location: 20 cm from heel Size: 0.3; Reflux: 2372 ms VARICOSITIES: Location: SSV mid Size: 0.5; Reflux: 1708 ms Location: Proximal thigh Size: 0.3; Reflux: 2564 ms Location: Mid thigh Size: 0.3; Reflux: 0 ms Location: Distal thigh Size: 0.5; Reflux: 0 ms Location: Proximal calf Size: 0.3; Reflux: 0 ms 3. DEEP VENOUS ULTRASOUND OF THE LEFT LOWER EXTREMITY: Common Femoral Vein: Compressible, normal respiratory variation and augmented flow. Femoral Vein: Chronic changes in the left proximal femoral vein and mid duplicated femoral vein. Popliteal Vein: Compressible, normal augmentation. Deep Reflux: Reflux in the common femoral vein measures 2224 ms. Reflux in the femoral vein measures 2268 ms. Reflux in the duplicated mid femoral vein measures 2244 ms. Reflux in the popliteal vein measures to 332 ms. There is no evidence of a Howe's cyst. 4. SUPERFICIAL ULTRASOUND WITH DOPPLER OF LEFT LOWER EXTREMITY: GREAT SAPHENOUS VEIN: Saphenofemoral Junction: 1.2 cm; Reflux: 2220 ms Proximal Thigh: 0.9 cm; Reflux: 864 ms Mid Thigh: 0.8 cm; Reflux: 720 ms Distal Thigh: 0.8 cm; Reflux: 980 ms At Knee: 0.7 cm; Reflux: 656 ms Proximal Calf: 0.9 cm; Reflux: 908 ms Mid Calf: 0.7 cm; Reflux: 1660 ms Distal Calf: 0.5 cm; Reflux: 0 ms DUPLICATED LATERAL GREAT SAPHENOUS VEIN: Saphenofemoral Junction: 0.3 cm; Reflux: 0 ms Mid Thigh: 0.2 cm; Reflux: 0 ms SMALL SAPHENOUS VEIN: Saphenopopliteal Junction: 0.3 cm; Reflux: 0 ms Proximal: 0.3 cm; Reflux: 0 ms Distal: 0.2 cm; Reflux: 1764 ms PERFORATORS: Location: 40 cm from healed Size: 0.3; Reflux: 2752 ms Location: Mid thigh Size: 0.3; Reflux: 0 ms Location: Proximal calf Size: 0.5; Reflux: 0 ms Location: 33 cm from heel Size: 0.3; Reflux: 2352 ms Location: 29 cm from heel Size: 0.4; Reflux: 2836 ms VARICOSITIES: Location: Proximal SSV Size: 0.3; Reflux: 2348 ms Location: Proximal thigh Size: 0.3; Reflux: 0 ms Location: Mid thigh Size: 0.4; Reflux: 0 ms Location: Proximal calf Size: 0.3; Reflux: 0 ms Location: Proximal calf Size: 0.4; Reflux: 0 ms Location: Midcalf Size: 0.7; Reflux: 2904 ms US/ venous insuf bilat IMPRESSION: Right: 1. No evidence of deep venous thrombosis in the right lower extremity. 2. Diffuse reflux in the deep system of the right lower extremity measures up to 2532 in the right popliteal vein. 3. Incompetence of the right great saphenous vein from the level of the saphenofemoral junction to the distal thigh, and a focal area of incompetence at the level of the mid calf, with reflux measuring up to 2608 ms. 4. Segmental incompetence of the right small saphenous vein at the level of the saphenofemoral popliteal junction with reflux measuring up to 660 ms. 5. Competent right lateral duplicated great saphenous vein. 6. Multiple perforators and varicosities in the right thigh and calf, some of which demonstrate reflux, as above. Left: 1. Synechiae in the proximal left femoral vein and nonocclusive chronic thrombus in the mid duplicated femoral vein. No acute deep venous thrombosis of the left lower extremity. 2. Diffuse reflux in the deep system of the left lower extremity measures up to 2332 ms in the left popliteal vein. 3. Incompetence of the left great saphenous vein from the level of the saphenofemoral junction to the mid calf with reflux measuring up to 2220 ms. 4. Segmental incompetence of the left small saphenous vein at the level of the distal calf with reflux measuring up to 1764 ms. 5. Competent left lateral duplicated great saphenous vein. 6. Multiple perforators and varicosities in the left thigh and calf, some of which demonstrate reflux, as above. Given extensive venous insufficiency, diffuse reflux in the bilateral lower extremities, and evidence of chronic thrombus in the left femoral vein, recommend MRI of the pelvis to assess for central venous compression.
== END 2024-03-24 09:44 | disposition home or self-care (01) ==
LOC: HO.US 09:43
PROVIDERS: PCP Family Medicine; Visit Provider Surgery Vascular Surgery
DX: I83.12 Varicose veins of left lower extremity with inflammation (principal)
CPT/HCPCS: 93970

== ENCOUNTER 2024-05-25 09:59 | Outpatient (AMB) | payer OTHER, SELFPAY ==
--- NOTE | 2024-05-25 10:02 | A.OFFVIS_ITS ---
Vital Signs 05/25/24 10:03 Height 6 ft 1 in Weight 230 lb BMI 30.3 BP 118/72 Blood Pressure Location Lt brachial Position Sitting Intake Visit Reasons: Follow up [facility] 03/24/24 Intake Note: Alan is a 64 year old male who presents to the office today for a follow up 03/24/24. Pt states his legs are feeling better with compression stocking but states he still has some swelling and leg discoloration mainly in his left leg. Allergies house dust Allergy (Unknown, Verified 05/25/24 10:05) Unknown mold Allergy (Unknown, Verified 05/25/24 10:05) Unknown amantadine Adverse Reaction (Severe, Uncoded 05/25/24 10:05) Seizure HPI HPI Follow up [facility] 03/24/24: Details: Very pleasant 64-year-old gentleman presents for follow-up regarding venous insufficiency. He has had a prior history of a left lower extremity ulcer along with significantly swollen bilateral lower extremities. They have been a source of pain and discomfort for him. Left more so than right. He now presents for routine follow-up with venous insufficiency testing [facility] Medical History HLD (hyperlipidemia) Schizoaffective disorder MRSA (methicillin resistant Staphylococcus aureus) infection Dysphasia Chronic headaches Seizures Anemia Diabetes mellitus, type 2 Hallucinations Suicidal behavior Schizophrenia Hypertension Osteomyelitis DVT (deep venous thrombosis) GERD (gastroesophageal reflux disease) Ulcerative colitis Hiatal hernia Cardiac arrhythmia Social History Household Members: None Housing: Apartment Do you presently have visiting nurse or other home services: Yes (someone comes in to help him with meds. Service from [employer]) Unable to assess alcohol history related to: Unknown Patient Tobacco Use Status: Current everyday Tobacco user Tobacco use type: Cigarette Years Smoked: 52 e-Cigarette/Vaping Use: Never Used Second Hand Smoke Exposure: No Substance Use Type: Crack/Cocaine and Marijuana service: No Sexual orientation: Straight/Heterosexual Review of Systems Const Reports as per HPI ENT Reports no additional complaints Card Denies chest pain, Denies chest pain at rest and Denies chest pain with activity Resp Denies chest congestion and Denies cough GI Reports no additional complaints Musc Details: pain over varicosities, aching of lower extremities, swelling, cramping, heaviness and tiredness, itching Denies abnormal gait Skin/Breast Reports pruritus and Denies wounds Neuro Reports no additional complaints and Denies abnormal gait Psych Denies no additional complaints Physical Exam Vital Signs: Last Vital Signs BP 118/72 05/25/24 10:03 BMI result Body Mass Index 30.3 Const General: cooperative, healthy appearing and comfortable Orientation/consciousness: oriented to person, oriented to place and oriented to time Neck Carotids: no bruits Chest Chest palpation & inspection: normal inspection of the chest and normal palpation of entire chest wall Resp Effort & Inspection: normal respiratory effort and able to speak in complete sentences Cardio Rate: regular rate Heart sounds: S1 normal heart sound present and S2 normal heart sound present Peripheral pulses: Peripheral pulses 2+ throughout GI Inspection: Yes normal to inspection Skin Other: +2 edema, healed left leg ulcer CEAP Classification C5 - left leg ulcer healed Ep - Etiology Primary As - superficial veins P - reflux General skin exam: dry skin Neuro General: oriented to person, oriented to place and oriented to time Extrem Right lower extremity: full ROM, normal capillary refill and edema Left lower extremity: full ROM, normal capillary refill and edema Psych Mental Status: mental status grossly normal Results Reviewed Results Reviewed: Brief summary of venous insufficiency testing is as follows: right great saphenous vein: Positive right small saphenous vein: Positive right accessory vein: none present left great saphenous vein: Positive left small saphenous vein: Positive left accessory vein: none present Please note there is no evidence of any venous aneurysms or significant tortuosity Assessment & Plan Assessment & Plan (1) Varicose veins of left lower extremity with inflammation: Code(s): I83.12 - Varicose veins of left lower extremity with inflammation Category: Medical Plan: This patient has varicose veins with inflammation. They continue to be a source of discomfort for the patient. The patient has tried conservative treatment with compression, leg elevation and exercise program for over 3 months time. They have been compliant with all treatment. This has provided minimal relief for the patient. I do not anticipate this course of treatment will alter the underlying etiology. The patient has been scheduled for lower extremity venous treatment inclusive of --- left great saphenous vein radiofrequency ablation. Risks, benefits, and complications of this procedure has been discussed in detail with the patient including but not limited to bleeding, infection, and the development of a DVT. The patient has demonstrated a clear understanding and has consented. We will schedule the patient as soon as possible. Thank you for allowing us to participate in this patient's care. If there are any questions or concerns please do not hesitate to contact us. Medications: Discontinued benztropine Discontinued Reason: Patient no longer taking 0.5 mg PO BID 60 tabs 0RF Coding Level of Care Code Est Pt Level 4 (25481) Diagnoses Varicose veins of left lower extremity with inflammation I83.12
[2024-05-25 10:03] VITALS: BP 118/72; BMI 30.3
== END 2024-05-25 10:29 | disposition home or self-care (01) ==
PROVIDERS: PCP Family Medicine; Visit Provider Surgery Vascular Surgery
DX: I83.12 Varicose veins of left lower extremity with inflammation (principal)
CPT/HCPCS: 99214

== ENCOUNTER → 2024-05-25 09:59 | Outpatient (BNVA) | payer OTHER, SELFPAY | PROVIDERS: PCP Family Medicine; Visit Provider Surgery Vascular Surgery ==